=== PATIENT | female | born 1980 | race Native Hawaiian/Other Pacific Islander ===

== ENCOUNTER → 2022-01-23 08:08 | Outpatient (BNVA) | payer OTHER, SELFPAY | PROVIDERS: PCP Internal Medicine; Visit Provider Nurse Practitioner Family | DX: G43.009 Migraine without aura, not intractable, without status migrainosus (principal); M54.81 Occipital neuralgia; F07.81 Postconcussional syndrome | CPT/HCPCS: 99212 ==

== ENCOUNTER → 2022-02-17 08:02 | Outpatient (BNVA) | payer OTHER, SELFPAY | PROVIDERS: PCP Internal Medicine; Visit Provider Nurse Practitioner Family | DX: M54.81 Occipital neuralgia (principal); G43.009 Migraine without aura, not intractable, without status migrainosus; M54.2 Cervicalgia | CPT/HCPCS: 99202 ==

== ENCOUNTER → 2022-03-06 15:13 | Outpatient (BNVA) | payer OTHER, SELFPAY | PROVIDERS: PCP Internal Medicine; Visit Provider Internal Medicine | DX: M54.81 Occipital neuralgia (principal) | CPT/HCPCS: 64405; 64450; J3300 ==

== ENCOUNTER → 2022-03-20 15:02 | Outpatient (BNVA) | payer OTHER, SELFPAY | PROVIDERS: PCP Internal Medicine; Visit Provider Internal Medicine | DX: Z13.89 Encounter for screening for other disorder (principal) ==

== ENCOUNTER → 2022-04-27 09:59 | Outpatient (BNVA) | payer OTHER, SELFPAY | PROVIDERS: PCP Internal Medicine; Visit Provider Nurse Practitioner Family | DX: F07.81 Postconcussional syndrome (principal); G43.009 Migraine without aura, not intractable, without status migrainosus; M54.81 Occipital neuralgia | CPT/HCPCS: 99212 ==

== ENCOUNTER → 2022-10-24 15:29 | Outpatient (BNVA) | payer OTHER, SELFPAY | PROVIDERS: PCP Internal Medicine; Visit Provider Nurse Practitioner Family | DX: M54.2 Cervicalgia (principal) ==

== ENCOUNTER → 2023-01-17 09:56 | Outpatient (BNVA) | payer OTHER, SELFPAY | PROVIDERS: PCP Internal Medicine; Visit Provider Nurse Practitioner Family | DX: Z13.89 Encounter for screening for other disorder (principal) ==

== ENCOUNTER 2023-05-21 09:32 | Outpatient (AMB) | payer OTHER, SELFPAY ==
--- NOTE | 2023-05-21 09:34 | MHC.OFFVIS ---
Intake Vital Signs 05/21/23 09:35 Height 5 ft 10 in Weight 226 lb 8 oz BMI 32.5 BP 138/92 H Blood Pressure Location Rt brachial Position Sitting Pulse 75 Pulse Source Pulse Oximeter Pulse Oximetry (%) 98 Oxygen Delivery Method Room Air Intake Visit Reasons: 4m follow up Intake Note: Pt presents as a 4 month f/u. Pt states Nothing's really changed. went back on Aimovig in October and it took a couple month. this month was pretty good, the month before I had a migraine but it was at the end of the 4 weeks. still having crazy light sensitivity. 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 Pt reports he suffered a left pectoral muscle tear while exercising (bench pressing). He is 4-5 weeks s/p surgical repair. Has started PT. Pt reports that he is doing well on Aimovig. He is still quite photophobic- even if he uses dark mode. Watching TV, using screens can trigger a headache. He is using Tylenol and Rizatriptan prn. Using the Tizanidine 6mg as needed He continues to have bothersome diplopia- especially with reading up close. His brain MRI was stable. [facility] Medical History Cervicalgia Surgical History H/O cervical spine surgery History of lumbar surgery S/P repair of pectoralis muscle tear Family History (Updated 05/21/23 @ 09:44 by Tosha Rivera CMA) Maternal Aunt Cancer Social History (Updated 05/21/23 @ 09:45 by Tosha Rivera CMA) Household Members: Spouse Housing: House Alcohol intake: current Alcohol intake frequency: does not drink Patient Tobacco Use Status: Never used Tobacco Review of Systems Const All systems reviewed & are unremarkable except as noted in HPI and below Physical Exam Vital Signs: Last Vital Signs Pulse 75 05/21/23 09:35 BP 138/92 H 05/21/23 09:35 Pulse Ox 98 05/21/23 09:35 Oxygen Delivery Method Room Air 05/21/23 09:35 BMI result Body Mass Index 32.5 Const General: cooperative and no acute distress Orientation/consciousness: patient oriented x3 HEENT Head: Yes normocephalic Resp Effort & Inspection: normal respiratory effort and able to speak in complete sentences Neuro General: patient oriented x3, gait normal and CN's II-XI intact bilaterally Cognition (Neuro): normal cognition Motor exam (neuro): 5/5 motor strength present throughout Psych Appearance: grossly normal Mental Status: mental status grossly normal Speech and movement: Normal speech and movement present Affect: normal affect Attitude: cooperative Thought process: Normal thought process present Thought content: Normal thought content present Insight: Good insight present (Psych) Judgement: Good judgement present (Psych) Assessment & Plan Assessment & Plan (1) Diplopia: Code(s): H53.2 - Diplopia (2) Migraine without aura: Code(s): G43.009 - Migraine without aura, not intractable, without status migrainosus (3) Postconcussional syndrome: Code(s): F07.81 - Postconcussional syndrome Plan For recent onset diplopia- Will request ophthalmology consult. Reviewed brain MRI w/wo- no interval changes in non-specific white matter lesion burden. Follow-up on previous order to check labs for common etiologies For migraine: Pt may benefit from trying migarine specific blue-light filtering tanya-tinted glasses and/or trying green light/green glasses tx. Continue Aimovig 140mg sc q month. Continue Tizanidine 6mg qhs prn- for muscle spasm, tremor as well. Previous migraine prophylaxis failures- Amitriptyline- not tolerated. Propranolol- not effective after 8 weeks. Gabapentin- ineffective for migraine after > 8 weeks. Emgality- did not tolerate- worsening headache. Contraindication: Topiramate d/t risk for cognitive side effects.. Continue rizatripatn 10mg prn. Previous acute migraine tx's: Sumatriptan- lost efficacy Future considerations: Nurtec ODT prn. f/u in 3-4 months or sooner prn new/worsening s/s. Orders: Referrals Ophthalmology Referral F07.81 - Postconcussional syndrome, G43.009 - Migraine without aura, not intractable, without status migrainosus, H53.2 - Diplopia Coding Level of Care Code Est Pt Level 4 (71207) Diagnoses Diplopia H53.2 Migraine without aura G43.009 Postconcussional syndrome F07.81
[2023-05-21 09:35] VITALS: BP 138/92; PULSE 75; O2SAT 98; BMI 32.5
== END 2023-05-21 10:25 | disposition home or self-care (01) ==
PROVIDERS: Visit Provider Nurse Practitioner Family
DX: H53.2 Diplopia (principal); G43.009 Migraine without aura, not intractable, without status migrainosus; F07.81 Postconcussional syndrome
CPT/HCPCS: 99214

== ENCOUNTER → 2023-05-21 09:32 | Outpatient (BNVA) | payer OTHER, SELFPAY | PROVIDERS: Visit Provider Nurse Practitioner Family | DX: R51.9 Headache, unspecified (principal); R20.2 Paresthesia of skin; R25.3 Fasciculation; R25.1 Tremor, unspecified; H53.2 Diplopia ==

== ENCOUNTER 2023-11-14 10:57 | Outpatient (AMB) | payer OTHER, SELFPAY ==
[2023-11-14 11:29] VITALS: BP 164/112; BMI 32.6
--- NOTE | 2023-11-14 11:29 | MHC.OFFVIS ---
Intake Vital Signs 11/14/23 11:29 Height 5 ft 10 in Weight 227 lb BMI 32.6 BP 164/112 H Blood Pressure Location Rt brachial Position Sitting Intake Visit Reasons: 4m follow up-LVM Intake Note: Patient presents for 4 month follow up. im still getting them, I have one right now Allergies No Known Allergies Allergy (Verified 11/14/23 11:32) HPI HPI Comments History of Present Illness Details 43-yr-old male presents for f/u visit. Pt denies any significant interval medical changes. Pt has recovered after the recent left pectoral tear. He has been exercising. He is scheduled for BUE EMG/NCS d/t BUE tingling. He has been taking an salted electrolyte supplement qam- feels that this is helping to reduce migraine frequency/severity. He notes that when he fasts, for confucianism reasons- he is more irritable. He can notice more migraine headaches prior to the next dose of Aimovig. He still finds that exercising can alleviate the headache while exercising. Being outside does help. He is still photophobic, more so with anterior lights rather than sunlight. He did try green light therapy and green glasses, however was not very helpful. Current number of typical migraine days per month: 2 Average painfulness of these migraines: mod-severe Current number of non-migraine headache days per month: 5 Average painfulness of these headaches: mild-mod Current number of days of acute medication use per month: 1-2 x's per week [facility] Medical History Cervicalgia Surgical History S/P repair of pectoralis muscle tear H/O cervical spine surgery History of lumbar surgery Family History Maternal Aunt Cancer Social History Household Members: Spouse Housing: House Alcohol intake: current Alcohol intake frequency: does not drink Patient Tobacco Use Status: Never used Tobacco Physical Exam Vital Signs: Last Vital Signs BP 164/112 H 11/14/23 11:29 BMI result Body Mass Index 32.6 Const General: cooperative and no acute distress Orientation/consciousness: patient oriented x3 Resp Effort & Inspection: normal respiratory effort and able to speak in complete sentences Neuro General: patient oriented x3 Cranial nerves: Yes CN's II-XII intact bilaterally Cognition (Neuro): normal cognition Psych Appearance: grossly normal Mental Status: mental status grossly normal Speech and movement: Normal speech and movement present Affect: normal affect Attitude: cooperative Assessment & Plan Assessment & Plan (1) Postconcussional syndrome: Code(s): F07.81 - Postconcussional syndrome (2) Migraine without aura: Code(s): G43.009 - Migraine without aura, not intractable, without status migrainosus (3) Cervicalgia: Code(s): M54.2 - Cervicalgia Plan For migraine: Continue Aimovig 140mg sc q month. Continue Tizanidine 6mg qhs prn- for muscle spasm, tremor as well. Previous migraine prophylaxis failures- Amitriptyline- not tolerated. Propranolol- not effective after 8 weeks. Gabapentin- ineffective for migraine after > 8 weeks. Emgality- did not tolerate- worsening headache. Contraindication: Topiramate d/t risk for cognitive side effects.. ? Continue rizatripatn 10mg prn. Previous acute migraine tx's: Sumatriptan- lost efficacy Future considerations: Nurtec ODT prn. ? ? f/u in 6 months or sooner prn new/worsening s/s. Coding Level of Care Code Est Pt Level 4 (41448) Diagnoses Postconcussional syndrome F07.81 Migraine without aura G43.009 Cervicalgia M54.2
== END 2023-11-14 12:23 | disposition home or self-care (01) ==
PROVIDERS: PCP Internal Medicine; Visit Provider Nurse Practitioner Family
DX: G44.309 Post-traumatic headache, unspecified, not intractable (principal); F07.81 Postconcussional syndrome; M54.2 Cervicalgia
CPT/HCPCS: 99214

== ENCOUNTER → 2023-11-14 10:57 | Outpatient (BNVA) | payer OTHER, SELFPAY | PROVIDERS: PCP Internal Medicine; Visit Provider Nurse Practitioner Family | DX: R51.9 Headache, unspecified (principal); R20.2 Paresthesia of skin; R25.3 Fasciculation; R25.1 Tremor, unspecified; H53.2 Diplopia ==

== ENCOUNTER 2024-12-02 14:24 | Outpatient (REF) | payer OTHER, SELFPAY ==
--- OUTSIDE RECORDS SUMMARY | 2024-12-02 15:32 | XMS_ITS | Clinical Summary ---
Author Organization [facility] Address [address] [place] [address] Care Team Providers Care Lathing Supervisor Name Role Phone Mendoza Olvera MD Primary Care Provider [phone] Allergies No known active allergies Medications Medication [...] this topic Medical Devices Implanted Type Area Carton Lettering Machine Operator Device Identifier Shelf Expiration Date Model / Serial / Lot Surgiflo Hemostatic Matrix [facility] 2991-687657 - [id number] Implanted:Qty : 1 on 08/25/2021 by Joseph Sorensen MD at [place] [facility] Hemostatic Agent Anterior/ Posterior: Spine Lumbar [facility] [employer] INC 12/26/2022 2991 / / [id number] Surgiflo Hemostatic Matrix [facility] 2991-049065 - [id number] Implanted:Qty : 1 on 07/12/2022 by Joseph Sorensen MD at [facility] Hemostatic Agent Anterior: Spine Cervical JNJ ETHICON INC 08/28/2023 2991 / / [id number] Bone Graft Spine Infuse Sm Medt-Sofa [id number] - [id number] Implanted:Qty : 1 on 08/25/2021 by Joseph Sorensen MD at [facility] Anterior: Spine Lumbar MEDTRONIC SOFAMOR DANEK 05/28/2023 [id number] / / [id number] Implanted:Qty : 1 on 08/25/2021 by Joseph Sorensen MD at [facility] [facility] Anterior: Spine Lumbar MARGARITA SPINE 0L15 / / Screw Self-Starting 5.5x25mm Stry-K2m 7116-27333t-0 50672 - [id number] Implanted:Qty : 2 on 08/25/2021 by Joseph Sorensen MD at [place] [facility] Anterior: Spine Lumbar MARGARITA SPINE 5D / / Screw Lumb Ant S T 5.5x30mm Stry-K2m 7157-18600-16 2604 - [id number] Implanted:Qty : 1 on 08/25/2021 by Joseph Sorensen MD at [place] [facility] Anterior: Spine Lumbar MARGARITA SPINE 0 / / Vikos Cervical 14x14.5x7mm 7d Stry-Spin [id number] -604759 - [id number] Implanted:Qty : 1 on 07/12/2022 by Joseph Sorensen MD at [place] [facility] Anterior: Spine Cervical MARGARITA SPINE 02/02/2026 5586-0748 07L7 / [id number] / Anterior Cervical Plate Constr 1 Level 22mm Stry-K2m Ub68-46y12g-6 18269 - [id number] Implanted:Qty : 1 on 07/12/2022 by Joseph Sorensen MD at [facility] Anterior: Spine Cervical MARGARITA SPINE [id number] 2V / / Screw Va Self-Start 4x14mm Stry-K2m 8801-61524id- 143210 - [id number] Implanted:Qty : 4 on 07/12/2022 by Joseph Sorensen MD at [facility] Anterior: Spine Cervical MARGARITA SPINE [id number] 4DA / / Explanted Type Area Carton Lettering Machine Operator Device Identifier Shelf Expiration Date Model / Serial / Lot Gavino Explanted:Qty: 2 on 08/25/2021 by Joseph Sorensen MD at [facility] [facility] Posterior: Spine Lumbar Screw Explanted:Qty: 4 on 08/25/2021 by Joseph Sorensen MD at [place] [facility] Posterior: Spine Lumbar Tlif Explanted:Qty: 1 on 08/25/2021 by Joseph Sorensen MD at [facility] [facility] Posterior: Spine Lumbar Set Screw Explanted:Qty: 4 on 08/25/2021 by Joseph Sorensen MD at [facility] Posterior: Spine Lumbar Advance Directives For more information, please contact: [phone] Documents on File Type Date Recorded Patient Drill Press Hand Expl anation Advance Directive and Living Will [...] way: discussion with patient . Care Teams Lathing Supervisor Relationship Specialty Start Date End Date Mendoza Olvera MD [address] [place] [id number] PCP - General Internal Medicine 04/16/18
--- OUTSIDE RECORDS SUMMARY | 2024-12-02 15:32 | XMS_ITS | Clinical Summary ---
Author Organization [facility] Address [address] [place] [address] Care Team Providers Care Vp Genetic Name Role Phone Unavailable Primary Care Provider [...] patient's age to complete this topic Insurance [employer] * Guarantor: FARHANA CASAS Account Type Relation to Patient Date of Phone Billing Address Personal/Family [address] [place] [address] * Guarantor: SHAQ Vittana YESSI BOSWELL [facility] Account Type Relation to Patient Date of Phone Billing Address [facility]ational [facility] ATTN: A/P [address] [place] [address]
--- OUTSIDE RECORDS SUMMARY | 2024-12-02 15:32 | XMS_ITS | Clinical Summary ---
Author Organization [facility] [place] [facility] Address [address] [place] [address] Care Team Providers Care Canvas Goods Supervisor Name Role Phone Mendoza Olvera MD Primary Care Provider [phone] Surgical History Surgery Date Site/Laterality Comments OTHER SURGICAL HISTORY 04/2020 PROCEDURE: [place] ARTHRODESIS POSTERIOR INTERBODY 1 NTRSPC LUMBAR; COMMENT: Dr. Barker L5-S1 posterior fusion OTHER SURGICAL HISTORY 08/25/2021 PROCEDURE: [place] OSTEOTOMY SPINE W/DSC ANT APPR 1 VRT SGM LUMBAR; COMMENT: L5-S1 revision surgery with ALIF, anterior plate, and removal of posterior screws/rods, done in CT SHOULDER ARTHROSCOPY 2009 Right PROCEDURE: [place] SURGICAL ARTHROSCOPY SHOULDER W/LSS&RESCJ ADS; COMMENT: slap [...] this topic Medical Devices Implanted Type Area Repatcher Device Identifier Shelf Expiration Date Model / Serial / Lot Surgiflo Hemostatic Matrix [employer]Kraft[employer]ie [id number] Implanted:Qty: 1 on 08/25/2021 by Joseph Sorensen MD Implants N/A: Spine Lumbar [employer] 12/26/2022 2991 / / [id number] Surgiflo Hemostatic Matrix DataKraftAvvoEthi [id number] Implanted:Qty: 1 on 07/12/2022 by Joseph Sorensen MD Implants N/A: Spine Cervical BellhopsJ ETHICON INC 08/28/2023 2991 / / [id number] Bone Graft Spine Infuse Sm Medt-Sofa [id number] Implanted:Qty: 1 on 08/25/2021 by Joseph Sorensen MD N/A: Spine Lumbar MEDTRONIC SOFAMOR DANEK 05/28/2023 [id number] / / [id number] [id number] Implanted:Qty: 1 on 08/25/2021 by Joseph Sorensen MD N/A: Spine Lumbar MARGARITA SPINE L15 / / Screw Self-Starting 5.5x25mm Stry-K2m [id number] 3211 Implanted:Qty: 2 on 08/25/2021 by Joseph Sorensen MD N/A: Spine Lumbar MARGARITA SPINE D / / Screw Lumb Ant S T 5.5x30mm Stry-K2m 8444-96525-457 604 Implanted:Qty: 1 on 08/25/2021 by Joseph oSrensen MD N/A: Spine Lumbar MARGARITA SPINE / / Vikos Cervical 14x14.5x7mm 7d Stry-Spin [id number]- 061276 - [id number] Implanted:Qty: 1 on 07/12/2022 by Joseph Sorensen MD N/A: Spine Cervical MARGARITA SPINE 02/02/2026 2504-77366 7L7 / [id number] / Anterior Cervical Plate Constr 1 Level 22mm Stry-K2m [id number] 1249 Implanted:Qty: 1 on 07/12/2022 by Joseph Sorensen MD N/A: Spine Cervical MARGARITA SPINE [id number] V / / Screw Va Self-Start 4x14mm Stry-K2m 7693-61233mq-2 53423 Implanted:Qty: 4 on 07/12/2022 by Joseph Sorensen MD N/A: Spine Cervical MARGARITA SPINE 8801-69902 DA / / Advance Directives Documents on File Type Date Recorded Patient Transportation Design Engineer Expl anation Health Care Decision (hx) 08/26/2021 [...] (hx) 05/10/2018 AD TREJO DIRECTIVE Care Teams Canvas Goods Supervisor Relationship Specialty Start Date End Date Mendoza Olvera MD [address] [place] [phone] PCP - General Internal Medicine 01/02/22
[2024-12-02 17:56] LABS: MANUAL DIFF FLAG NO
[2024-12-02 18:07] LABS: Basophils Absolute Auto 0.1 X10*3/uL (0.0-0.2); Basophils Percent Auto 0.5 % (0-2); Eosinophils Absolute Auto 0.1 X10*3/uL (0.0-0.4); Eosinophils Percent Auto 0.8 % (0-4); Hematocrit 50.4 % (42.0-52.0); Hemoglobin 17.4 g/dl (14.0-18.0); Imm Gran Abs Auto 0.14 X10*3/uL (0.00-0.03); Imm Gran Pct Auto 1.1 % (0.0-0.4); Lymphocytes Absolute Auto 1.5 X10*3/uL (1.2-4.9); Lymphocytes Percent Auto 12.2 % (20-40); Mean Corpuscular HGB Conc 34.5 g/dl (31.0-36.0); Mean Corpuscular Hemoglobin 30.6 pg (27.0-33.0); Mean Corpuscular Volume 88.7 fL (80.0-98.0); Mean Platelet Volume 10.6 fL (9.4-12.4); Monocytes Absolute Auto 0.9 X10*3/uL (0.1-1.2); Monocytes Percent Auto 7.4 % (2-11); Neutrophils Absolute Auto 9.7 x10*3/uL (2.0-8.3); Platelet Count 363 X10*3/uL (160-400); Red Blood Count 5.68 X10*6/uL (4.60-5.80); Red Cell Distribution Width 13.1 % (11.0-16.0); White Blood Count 12.4 X10*3/uL (4.8-10.8)
[2024-12-02 18:20] LABS: Estimated Average Glucose 103 mg/dL; Hemoglobin A1C 152.5361 umol/L; Hemoglobin A1c % 5.2 % (<6.0); Total Hemoglobin (HGBA1C) 4534.5874 umol/L
[2024-12-02 18:27] LABS: Alanine Aminotransferase 46 U/L (0-40); Albumin Level 4.8 g/dL (3.5-5.0); Alkaline Phosphatase 43 U/L (39-117); Anion Gap 18 (12-20); Aspartate Amino Transferase 25 U/L (5-37); Bilirubin Total 0.7 mg/dL (0.0-1.0); Blood Urea Nitrogen 17 mg/dL (9-16); Calcium 9.4 mg/dL (8.4-10.2); Carbon Dioxide 26 mmol/L (22-29); Chloride 103 mmol/L (96-108); Estimated Glomerular Filt Rate 49; Glucose Random 123 mg/dL (60-115); Magnesium 2.3 mg/dL (1.6-2.6); Sodium 143 mmol/L (135-145); Total Protein 8.2 g/dL (6.5-8.0)
[2024-12-02 18:37] LABS: TSH reflex Free T4 0.78 uIU/mL (0.32-4.0)
[2024-12-02 18:57] LABS: Folate 7.9 ng/mL (> or = 4.0); Vitamin B12 792 pg/mL (200-900)
== END 2024-12-02 14:25 | disposition home or self-care (01) ==
LOC: HO.HKASLDS 14:24
PROVIDERS: PCP Internal Medicine; Visit Provider Nurse Practitioner Family
DX: R20.2 Paresthesia of skin (principal); R25.1 Tremor, unspecified; R25.3 Fasciculation; Z13.1 Encounter for screening for diabetes mellitus
CPT/HCPCS: 36415; 80053; 82607; 82746; 83036; 83735; 84443; 85025

== ENCOUNTER 2024-12-02 14:24 | Outpatient (AMB) | payer OTHER, SELFPAY ==
--- NOTE | 2024-12-02 14:27 | MHC.OFFVIS ---
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 Pt reports he had returned to work, however he sustained another back injury, and has since been out of work. Pt reports he has been having facial tingling burning, last week in the right lower jaw, but then can be in left upper jaw /eye, but today in the right upper jaw, kristi-orbital, temporal. The pain is triggered by touch or cold win. Once triggered, the pain will last for hours, but touch will cause intense pain x's a minute or two and then subsides. Can feel dizzy, like he would lose his peripheral vision, and could not speak or take a step. He has had these episodes before. He feels like something is in the corner of his right eye- like a web or something but nothing is there. Last eye exam was yrs ago. He has been noticing increased migraine headache in the last 2 weeks of his Aimovig cycle. He is still generally photophobic. He has been taking a salted electrolyte supplement qam He has had increased tiredness, needing to take more naps, snoring. He is hesitant to have a sleep study- as he cannot sleep with things touching him. His blood pressure is elevated today, he feels this is due to pain. States his , who is a nurse, checks his blood pressure at home and usually his SBP is about 120. He has right > left fingertip pins and needles- during the day and night. He can have RUE pain He has been having RUE bicep/shoulder region (rarely left shoulder) muscle spams/jumping. He has had Right bicep tear x's 2, and left pec tear x's 1. He is not exercising at this time. He is involved in caring for his dog. Denies interval dental work/pain/infections, sinus/URI s/s. [facility] Medical History Cervicalgia Surgical History S/P repair of pectoralis muscle tear H/O cervical spine surgery History of lumbar surgery Family History Maternal Aunt Cancer Social History Household Members: Spouse Housing: House Alcohol intake: current Alcohol intake frequency: does not drink Patient Tobacco Use Status: Never used Tobacco Physical Exam Vital Signs: BMI result Body Mass Index 32.1 Const General: cooperative and no acute distress Orientation/consciousness: patient oriented x3 Resp Effort & Inspection: normal respiratory effort and able to speak in complete sentences Neuro Other: Photophobia Limited cervical range of motion in extension with negative bilateral Spurling. Palpable tenderness along right zygomatic bone. Bilateral TMJ tightness, crepitus Palpation of bilateral temporal tendon insertion point- does not elicit increased tenderness. RUE- positive medial compression test. DTRs 2+ throughout. 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 - Disorder of trigeminal nerve, unspecified Category: Medical (2) Facial paresthesia: Code(s): R20.2 - Paresthesia of skin Category: Medical (3) Postconcussional syndrome: Code(s): F07.81 - Postconcussional syndrome Category: Medical (4) Migraine without aura: Code(s): G43.009 - Migraine without aura, not intractable, without status migrainosus Category: Medical (5) Cervicalgia: Code(s): M54.2 - Cervicalgia Category: Medical (6) White matter abnormality on MRI of brain: Code(s): R90.82 - White matter disease, unspecified Category: Medical Plan For facial paresthesias suggestive of trigeminal neuralgia/neuropathy: Check labs for common etiologies Follow-up brain MRI with and without contrast- also to assess status of known intracerebral white matter lesions. Start carbamazepine ER 100 mg b.i.d. x's 1-2 weeks, then increase to 2 caps p.o. b.i.d.- may help migraine as well. Advised pt will need routine labs once he has reached therapeutic dose. For BUE R > paresthesias: Pt advised to undergo EMG/NCS For daytime sleepiness: Discussed having patient undergo HST versus In-lab PSG, however patient does not believe he would tolerate the study, as he can not tolerate wearing things in his sleep. Advise patient, that if he were to agree to have a sleep study, and if the sleep study showed sleep apnea, there are alternate treatments other than CPAP Tx. Patient will consider. For migraine: Continue Aimovig 140mg sc q month. Continue Tizanidine 6mg qhs prn- for muscle spasm, tremor as well. Previous migraine prophylaxis failures- Amitriptyline- not tolerated. Propranolol- not effective after 8 weeks. Gabapentin- ineffective for migraine after > 8 weeks. Emgality- did not tolerate- worsening headache. Contraindication: Topiramate d/t risk for cognitive side effects. Future considerations: Adding anti-HTN agent to optimize both BP and migraine control. ? Continue rizatripatn 10mg prn. Previous acute migraine tx's: Sumatriptan- lost efficacy Future considerations: Nurtec ODT prn. ? ? Will follow-up upon review of above and patient to follow-up in clinic in 6 months or sooner prn. Orders: Orders Vitamin B12 and Folate Today R20.2 - Paresthesia of skin, R25.1 - Tremor, unspecified, R25.3 - Fasciculation TSH reflex Free T4 Today R20.2 - Paresthesia of skin, R25.1 - Tremor, unspecified, R25.3 - Fasciculation Vitamin B6 Today R20.2 - Paresthesia of skin, R25.1 - Tremor, unspecified, R25.3 - Fasciculation NE electromyogram (EMG) Today M54.2 - Cervicalgia, R20.2 - Paresthesia of skin, R25.1 - Tremor, unspecified, R25.3 - Fasciculation NE nerve conduction velocity Today M54.2 - Cervicalgia, R20.2 - Paresthesia of skin, R25.1 - Tremor, unspecified, R25.3 - Fasciculation Complete Blood Count Auto Diff Today R20.2 - Paresthesia of skin, R25.1 - Tremor, unspecified, R25.3 - Fasciculation Comprehensive Met. Panel Today R20.2 - Paresthesia of skin, R25.1 - Tremor, unspecified, R25.3 - Fasciculation Magnesium Today R20.2 - Paresthesia of skin, R25.1 - Tremor, unspecified, R25.3 - Fasciculation Hemoglobin A1c Today R20.2 - Paresthesia of skin, R25.1 - Tremor, unspecified, R25.3 - Fasciculation MR head/brain wo/w con Today G50.9 - Disorder of trigeminal nerve, unspecified, R20.2 - Paresthesia of skin, R25.1 - Tremor, unspecified, R25.3 - Fasciculation, R90.82 - White matter disease, unspecified Medications: New carbamazepine ER 1 cap x's 2 weeks then 2 caps orally every 12 hours; 30 days 120 caps 3RF carbamazepine ER 1 cap x's 2 weeks then 2 caps orally every 12 hours; 30 days 120 caps 3RF Coding Level of Care Code Est Pt Level 4 (31529) Diagnoses Trigeminal nerve disorder G50.9 Facial paresthesia R20.2 Postconcussional syndrome F07.81 Migraine without aura G43.009 Cervicalgia M54.2 White matter abnormality on MRI of brain R90.82
--- OUTSIDE RECORDS SUMMARY | 2024-12-02 14:28 | XMS_ITS | Clinical Summary ---
Author Organization [facility] Address [address] [place] [address] Care Team Providers Care Collection Card Clerk Name Role Phone Unavailable Primary Care Provider Unavailabl e Allergies No known active allergies Medications Magnesium Oxide 400 (241.3 Mg) MG Tab TAKE 1 TABLET BY MOUTH AT BEDTIME 6 02/17/2019 Active Erenumab-aooe (AIMOVIG 140 DOSE) 70 MG/ML Solution Auto-injector 70 MG EVERY MONTH Active Cephalexin 500 MG CapIndications: Laceration of right hand without foreign body, initial encounter 1 CAPSULE by mouth four times per day x 7 days 28 Cap 04/18/2019 Active Active Problems No known active problems Social History Tobacco Use Types Packs/Day Years Used Date Smoking Tobacco: Never Assessed Sex and Gender Information Value Date Recorded Sex Assigned at Not on file Legal Sex Male 10:06 AM EDT Gender Identity Not on file Sexual Orientation Not on file Last Filed Vital Signs Vital Sign Reading Time Taken Comments Blood Pressure 135/86 04/18/2019 10:03 AM EDT Pulse 74 04/18/2019 10:03 AM EDT Temperature 36.9 ??C (98.4 ??F) 04/18/2019 10:03 AM E DT Respiratory Rate 16 04/18/2019 10:03 AM EDT Oxygen Saturation 98% 04/18/2019 10:03 AM EDT Inhaled Oxygen Concentration - - Weight 98.9 kg (218 lb) 03/27/2019 9:28 AM EDT Height 176.5 cm (5' 9.5 ) 03/27/2019 9:28 AM EDT Body Mass Index 31.73 03/27/2019 9:28 AM EDT Plan of Treatment Health Maintenance Due Date Last Done Comments Hepatitis C Screening 1981 DTaP/Tdap/Td (1 - Tdap) 1999 Hep B (1 of 3 - 19+ 3-dose series) 02/23/2000 COVID-19 Vaccine (2023-2 5 season) 2024 Influenza (#1) 2024 Zoster (Shingrix) (1 of 2) 2031 HPV Vaccine Aged Out No longer eligi ble based on patient's age to complete this topic Hep A Aged Out No longer eligi ble based on patient's age to complete this topic Hib Aged Out No longer eligi ble based on patient's age to complete this topic Meningococcal ACWY Aged Out No longer eligible based on patient's age to complete this topic Pneumococcal Aged Out No longer eligi ble based on patient's age to complete this [place] [address] * Guarantor: FARHANA CASAS Account Type Relation to Patient Date of Phone Billing Address Personal/Family [address] [place] [address] * Guarantor: [employer] YESSI [facility] Account Type Relation to Patient Date of Phone Billing Address 

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
[2024-12-02 14:30] VITALS: BP 142/90; PULSE 121; O2SAT 94; BMI 32.1
== END 2024-12-02 15:26 | disposition home or self-care (01) ==
PROVIDERS: PCP Internal Medicine; Visit Provider Nurse Practitioner Family
DX: G50.9 Disorder of trigeminal nerve, unspecified (principal); R20.2 Paresthesia of skin; F07.81 Postconcussional syndrome; G43.009 Migraine without aura, not intractable, without status migrainosus; M54.2 Cervicalgia; R90.82 White matter disease, unspecified
CPT/HCPCS: 99214

== ENCOUNTER 2024-12-09 10:16 | Outpatient (REF) | payer OTHER, SELFPAY ==
--- NOTE | 2024-12-09 10:17 | EMG_ITS ---
FINDINGS: Bilateral median and ulnar motor and sensory studies were performed. Bilateral radial sensory studies were performed and bilateral median and lateral antecubital brachial sensory studies were performed and paraspinal muscles were tested with a needle. IMPRESSION: 1. Aevr-od-rendbxgz left and mild right median neuropathy across carpal tunnel. 2. Mild bilateral ulnar neuropathy across cubital tunnel. MD MAXWELL Perales/FER / [phone]
--- OUTSIDE RECORDS SUMMARY | 2024-12-09 11:27 | XMS_ITS | Clinical Summary ---
Author Organization [facility] Address [address] [place] [address] Care Team Providers Care Railroad Shop Inspector Name Role Phone Unavailable Primary Care Provider [...] patient's age to complete this topic Insurance [employer] * Guarantor: FARHANA CASAS Account Type Relation to Patient Date of Phone Billing Address Personal/Family [address] [place] [address] * Guarantor: SHAQ LRN YESSI BOSWELL [employer] Account Type Relation to Patient Date of Phone Billing Address Occupational [facility] ATTN: A/P [address] [place] [address]
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
--- OUTSIDE RECORDS SUMMARY | 2024-12-09 11:27 | XMS_ITS | Clinical Summary ---
Author Organization [facility] Address [address] [place] [address] Care Team Providers Care Business Technology Teacher Name Role Phone Mendoza Olvera MD Primary Care Provider [phone] Allergies No known active allergies Medications Medication [...] this topic Medical Devices Implanted Type Area Laundry Supervisor Device Identifier Shelf Expiration Date Model / Serial / Lot Surgiflo Hemostatic Matrix [facility] 2991-185980 - [id number] Implanted:Qty : 1 on 08/25/2021 by [place] [facility] [place] Hemostatic Agent Anterior/ Posterior: Spine Lumbar [facility] [employer] INC 12/26/2022 2991 / / [id number] Surgiflo Hemostatic Matrix [facility] 2991-482458 - [id number] Implanted:Qty : 1 on 07/12/2022 by Joseph Sorensen [place] [facility] [place] [facility] Hemostatic Agent Anterior: Spine Cervical JNJ ETHICON INC 08/28/2023 2991 / / [id number] Bone Graft Spine Infuse Sm Medt-Sofa 0255649-92185 6 - [id number] Implanted:Qty : 1 on 08/25/2021 by Joseph Sorensen [place] [facility] [place] [facility] Anterior: Spine Lumbar MEDTRONIC SOFAMOR DANEK 05/28/2023 [id number] / / [id number] Verdon Implanted:Qty : 1 on 08/25/2021 by Joseph Sorensen [place] [facility] [place] [facility] Anterior: Spine Lumbar MARGARITA SPINE 0L15 / / Screw Self-Starting 5.5x25mm Stry-K2m 1986-08138q-4 66063 - [id number] Implanted:Qty : 2 on 08/25/2021 by Joseph Sorensen [place] [facility] [place] Anterior: Spine Lumbar MARGARITA SPINE 5D / / Screw Lumb Ant S T 5.5x30mm Stry-K2m 2526-20563-39 2604 - [id number] Implanted:Qty : 1 on 08/25/2021 by Joseph S[place]ns[place] [facility] [place] Anterior: Spine Lumbar MARGARITA SPINE 0 / / Vikos Cervical 14x14.5x7mm 7d Stry-Spin 2504-838562p9 -464631 - [id number] Implanted:Qty : 1 on 07/12/2022 by Joseph Sorensen [place] [facility] [place] Anterior: Spine Cervical MARGARITA SPINE 02/02/2026 0122-8835 07L7 / [id number] / Anterior Cervical Plate Constr 1 Level 22mm Stry-K2m Zu36-77w59b-7 94425 - [id number] Implanted:Qty : 1 on 07/12/2022 by Joseph Sorensen [place] [facility] [place] [facility] Anterior: Spine Cervical MARGARITA SPINE [id number] 2V / / Screw Va Self-Start 4x14mm Stry-K2m 8801-06317wx- 981709 - [id number] Implanted:Qty : 4 on 07/12/2022 by Joseph Sorensen [place] [facility] [place] [facility] Anterior: Spine Cervical MARGARITA SPINE 9299-0023 4DA / / Explanted Type Area Laundry Supervisor Device Identifier Shelf Expiration Date Model / Serial / Lot Gavino Explanted:Qty: 2 on 08/25/2021 by Joseph Sorensen [place] [facility] [place] [facility] Posterior: Spine Lumbar Screw Explanted:Qty: 4 on 08/25/2021 by Joseph Sorensen [place] [facility] [place] [facility] Posterior: Spine Lumbar Tlif Explanted:Qty: 1 on 08/25/2021 by Joseph Sorensen [place] [facility] [place] [facility] Posterior: Spine Lumbar Set Screw Explanted:Qty: 4 on 08/25/2021 by Joseph S[place]nsen [place] [facility] [place] [facility] Posterior: Spine Lumbar Advance Directives For more information, please contact: [phone] Documents on File Type Date Recorded Patient Customer Equipment Engineer Expl anation Advance Directive and Living Will [...] way: discussion with patient . Care Teams Business Technology Teacher Relationship Specialty Start Date End Date Mendoza Olvera MD [address] [place] [address] PCP - General Internal Medicine 04/16/18
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
== END 2024-12-09 10:17 | disposition home or self-care (01) ==
LOC: HO.NEURO 10:16
PROVIDERS: PCP Internal Medicine; Visit Provider Nurse Practitioner Family
DX: R20.2 Paresthesia of skin (principal); R25.3 Fasciculation; R25.1 Tremor, unspecified; M54.2 Cervicalgia
CPT/HCPCS: 95886; 95913

== ENCOUNTER → 2025-02-11 09:33 | Outpatient (REF) | payer OTHER, SELFPAY ==
--- OUTSIDE RECORDS SUMMARY | 2025-02-11 10:39 | XMS_ITS | Clinical Summary ---
Author Organization [facility] Address [address] [place] [address] Care Team Providers Care Director Regulatory Agency Name Role Phone Mendoza Olvera MD Primary Care Provider [phone] Allergies No known active allergies Medications Medication [...] this topic Medical Devices Implanted Type Area Stewardess Supervisor Device Identifier Shelf Expiration Date Model / Serial / Lot Surgiflo Hemostatic Matrix [facility] 2991-632201 - [id number] Implanted:Qty : 1 on 08/25/2021 by Joseph Sorensen MD at [facility] [place] Hemostatic Agent Anterior/ Posterior: Spine Lumbar [facility] [employer] INC 12/26/2022 2991 / / [id number] Surgiflo Hemostatic Matrix [facility] 2991-054027 - [id number] Implanted:Qty : 1 on 07/12/2022 by Joseph Sorensen MD at [facility] [place] Hemostatic Agent Anterior: Spine Cervical JNJ ETHICON INC 08/28/2023 2991 / / [id number] Bone Graft Spine Infuse Sm Medt-Sofa 2345165-49281 6 - [id number] Implanted:Qty : 1 on 08/25/2021 by Joseph Sorensen MD at [facility] [place] Anterior: Spine Lumbar MEDTRONIC SOFAMOR DANEK 05/28/2023 [id number] / / [id number] [place] Implanted:Qty : 1 on 08/25/2021 by Joseph Sorensen MD at [facility] Anterior: Spine Lumbar MARGARITA SPINE 0L15 / / Screw Self-Starting 5.5x25mm Stry-K2m 6922-17471t-5 50138 - [id number] Implanted:Qty : 2 on 08/25/2021 by Joseph Sorensen MD at [facility] [place] and Med Anterior: Spine Lumbar MARGARITA SPINE 5D / / Screw Lumb Ant S T 5.5x30mm Stry-K2m 4321-27312-36 2604 - [id number] Implanted:Qty : 1 on 08/25/2021 by Joseph Sorensen MD at [facility] [place] and Med Anterior: Spine Lumbar MARGARITA SPINE 0 / / Vikos Cervical 14x14.5x7mm 7d Stry-Spin 2504-659705f1 -630622 - [id number] Implanted:Qty : 1 on 07/12/2022 by Joseph Sorensen MD at [facility] [place] and Med Anterior: Spine Cervical MARGARITA SPINE 02/02/2026 7653-7790 07L7 / [id number] / Anterior Cervical Plate Constr 1 Level 22mm Stry-K2m Up59-70v55z-9 36047 - [id number] Implanted:Qty : 1 on 07/12/2022 by Joseph Sorensen MD at [facility] Anterior: Spine Cervical MARGARITA SPINE [id number] 2V / / Screw Va Self-Start 4x14mm Stry-K2m 8801-58946os- 746183 - [id number] Implanted:Qty : 4 on 07/12/2022 by Joseph Sorensen MD at [facility] Anterior: Spine Cervical MARGARITA SPINE 1323-1121 4DA / / Explanted Type Area Stewardess Supervisor Device Identifier Shelf Expiration Date Model / Serial / Lot Gavino Explanted:Qty: 2 on 08/25/2021 by Joseph Sorensen MD at [facility] Posterior: Spine Lumbar Screw Explanted:Qty: 4 on 08/25/2021 by Joseph Sorensen MD at [facility] Posterior: Spine Lumbar Tlif Explanted:Qty: 1 on 08/25/2021 by Joseph Sorensen MD at [facility] Posterior: Spine Lumbar Set Screw Explanted:Qty: 4 on 08/25/2021 by Joseph Sorensen MD at [facility] Posterior: Spine Lumbar Advance Directives For more information, please contact: [phone] Documents on File Type Date Recorded Patient Orthopaedic General Expl anation Advance Directive and Living Will [...] way: discussion with patient . Care Teams Director Regulatory Agency Relationship Specialty Start Date End Date Mendoza Olvera MD [address] [place] [address] PCP - General Internal Medicine 04/16/18
--- OUTSIDE RECORDS SUMMARY | 2025-02-11 10:39 | XMS_ITS | Clinical Summary ---
Author Organization [facility] Address [address] [place] [address] Care Team Providers Care New Media Strategist Name Role Phone Mendoza Olvera MD Primary Care Provider [phone] Surgical History Surgery Date Site/Laterality Comments OTHER SURGICAL HISTORY 04/2020 PROCEDURE: [place] ARTHRODESIS POSTERIOR INTERBODY 1 NTRSPC LUMBAR; COMMENT: Dr. Barker L5-S1 posterior fusion OTHER SURGICAL HISTORY 08/25/2021 PROCEDURE: [place] OSTEOTOMY SPINE W/DSC ANT APPR 1 VRT SGM LUMBAR; COMMENT: L5-S1 revision surgery with ALIF, anterior plate, and removal of posterior screws/rods, done in CT SHOULDER ARTHROSCOPY 2009 Right PROCEDURE: [place] SURGICAL ARTHROSCOPY SHOULDER W/LSS&RESCJ ADS; COMMENT: slap [...] [facility] Screening 11/29/2019 Influenza Vaccine (Season Ended) 2025 09/29/20 17 HIB Vaccines Aged Out No longer eligi [...] age to complete this topic Meningococcal B Vaccine Aged Out No l onger eligible based on patient's age to complete [...] this topic Medical Devices Implanted Type Area Loss Prevention Auditor Device Identifier Shelf Expiration Date Model / Serial / Lot Surgiflo Hemostatic Matrix [employer] [id number] Implanted:Qty: 1 on 08/25/2021 by Joseph Sorensen MD Implants N/A: Spine Lumbar [employer] 12/26/2022 2991 / / [id number] Surgiflo Hemostatic Matrix [employer] [id number] Implanted:Qty: 1 on 07/12/2022 by Joseph Sorensen MD Implants N/A: Spine Cervical JNJ ETHISentis[employer] INC 08/28/2023 2991 / / [id number] Bone Graft Spine Infuse [facility] [id number] Implanted:Qty: 1 on 08/25/2021 by Joseph Sorensen MD N/A: Spine Lumbar MEDTRONIC CHRISTIANO BELCHER 05/28/2023 [id number] / / [id number] Courtney Implanted:Qty: 1 on 08/25/2021 by Joseph Sorensen MD N/A: Spine Lumbar MARGARITA SPINE L15 / / Screw Self-Starting 5.5x25mm Stry-K2m 7663-52191r-81 3211 Implanted:Qty: 2 on 08/25/2021 by Joseph Sorensen MD N/A: Spine Lumbar MARGARITA SPINE D / / Screw Lumb Ant S T 5.5x30mm Stry-K2m [id number] 604 Implanted:Qty: 1 on 08/25/2021 by Joseph Sorensen MD N/A: Spine Lumbar MARGARITA SPINE / / Vikos Cervical 14x14.5x7mm 7d Stry-Spin 2504-577231m7- 340149 - [id number] Implanted:Qty: 1 on 07/12/2022 by Joseph Sorensen MD N/A: Spine Cervical MARGARITA SPINE 02/02/2026 2504-70934 7L7 / [id number] / Anterior Cervical Plate Constr 1 Level 22mm Stry-K2m Pa97-39i34p-06 1249 Implanted:Qty: 1 on 07/12/2022 by Joseph Sorensen MD N/A: Spine Cervical MARGARITA SPINE [id number] V / / Screw Va Self-Start 4x14mm Stry-K2m 7074-77741hi-5 18599 Implanted:Qty: 4 on 07/12/2022 by Joseph Sorensen MD N/A: Spine Cervical MARGARITA SPINE 8801-64522 DA / / Advance Directives Documents on File Type Date Recorded Patient Insole Lip Turner Expl anation Health Care Decision (hx) 08/26/2021 [...] (hx) 05/10/2018 AD TREJO DIRECTIVE Care Teams New Media Strategist Relationship Specialty Start Date End Date Mendoza Olvera MD [address] [place] [phone] PCP - General Internal Medicine 01/02/22
--- OUTSIDE RECORDS SUMMARY | 2025-02-11 10:39 | XMS_ITS ---
Author Name [facility] Organization Unknown Encounters Encounter Type Encounter Reason Primary Diagnosis Location Date Ambulatory [facility] 07/27/2023 Ambulatory [facility] 07/13/2023 Ambulatory [facility] 07/13/2023 Ambulatory [facility] 07/13/2023 Ambulatory [facility] 05/26/2023 Ambulatory [facility] 04/21/2023 Ambulatory [facility] 03/17/2023
== END ==
LOC: HO.SL 09:33
PROVIDERS: PCP Internal Medicine; Visit Provider Nurse Practitioner Family
DX: Z13.89 Encounter for screening for other disorder (principal)

== ENCOUNTER 2025-06-04 09:22 | Outpatient (AMB) | payer OTHER, SELFPAY ==
--- OUTSIDE RECORDS SUMMARY | 2025-01-15 05:15 | XMS_ITS ---
Author Organization [facility] [place] Address [address] [facility] [address] [place] [address] Care Team Providers Care Supervisor Files Name Role Phone Migration, Provider Unavailable Unavailable REASON FOR VISIT Follow-up Appt Encounters Encounter Location Date Provider Diagnosis [facility], [address] [place] [address] 01/15/2025 Provider Migration Plan Of Treatment Next Appt Details Provider Name:Janell Nelson, 06/22/2025 09:00:00 AM, [address] [place] [address], [address], [place], [address], [phone] Progress Notes * FARHANA SELLERSDOB: [birth year] (45 yo M)Acc No.[id number]:01/15/2025 Progress Notes Patient: FARHANA MORRIS Provider: Fred Manzano :1980 A ge:44 Y S ex:Male Date:01/15/2025 Address:[address] [place], [place] [id number] Subjective: * Chief Complaints: * F ollow-up Appt * Ocular Surgical History: Objective: Vision Examination: * Electronic signature of Prov ider Migration on 06/04/2025 at 09:46 AM EDT Sign off status: Pending * Provider: Fred hankins Migration Date: 01/15/2025 Generated for Ritchie rinaldi/Jefferson/eTransmitting on: 0 06/04/2025 09:46 AM EDT
[2025-06-04 09:25] VITALS: BP 128/90; PULSE 89; O2SAT 98; BMI 31.5
--- NOTE | 2025-06-04 09:25 | A.OFFVIS_ITS ---
Vital Signs 06/04/25 09:25 Height 5 ft 10 in Weight 219 lb 6 oz BMI 31.5 BP 128/90 H Blood Pressure Location Rt brachial Position Sitting Pulse 89 Pulse Source Pulse Oximeter Pulse Oximetry (%) 98 Oxygen Delivery Method Room Air Intake Visit Reasons: 6 mnts f/u Intake Note: Patient presents follow up Trigeminal Nerve disorder/Migraine medication. Labs/MRI/EMG in chart. Advisory Software Engineer Required: No Accompanied by: Self / Same As Patient Allergies No Known Allergies Allergy (Verified 06/04/25 09:31) Medication List - Last Reconciled 06/04/25 by OMERO Russo acetaminophen 1,000 mg PO TID PRN anastrozole 1 mg PO 2XW celecoxib (Celebrex) 200 mg PO DAILY erenumab-aooe (Aimovig Autoinjector) 140 mg subcut monthly; 30 days rizatriptan 5 - 10 mg (0.5 - 1 x 10 mg) PO Q2H PRN 21 days testosterone cypionate mg IM tirzepatide (Mounjaro) 10 mg subcut QWEEK tizanidine 6 mg (1.5 x 4 mg) PO BEDTIME PRN 30 days Do you need a note to return to daycare/school/sports/work: No HPI Comments Details: 45-yr-old male presents for f/u visit of migraine. 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 Pt reports just occasional episodes of intermittent either right or left facial tingling burning, last week in the right lower jaw, but then can be in left upper jaw /eye, but today in the right upper jaw, kristi-orbital, temporal. Pain is triggered by touch or cold wind, and once triggered, the pain will last for hours, but touch will cause intense pain x's a minute or two and then subsides. He did not tolerate carbamazepine. Can feel off-balance and some lightheadedness- may forget to eat now that he is Mounjaro for weight loss. He did not have his Aimovig x's at least 2 months d/t insurance issues. Pt just resumed the Aimovig a few days ago, and already migraines have started subside. He is using his rizatriptan w/ good effect. He is still generally photophobic. He has been taking a salted electrolyte supplement qam He has been noticing increased shoulder discomfort- plans to f/u with ortho soon. Baseline migraie w/ aura- sees white spots, os more classic visual aura, lightheadedness, preceding the headaches. [facility] Medical History Cervicalgia Surgical History S/P repair of pectoralis muscle tear H/O cervical spine surgery History of lumbar surgery Family History Maternal Aunt Cancer Social History Household Members: Spouse Housing: House Alcohol intake: current Alcohol intake frequency: does not drink Patient Tobacco Use Status: Never used Tobacco Physical Exam Vital Signs: Last Vital Signs Pulse 89 06/04/25 09:25 BP 128/90 H 06/04/25 09:25 Pulse Ox 98 06/04/25 09:25 Oxygen Delivery Method Room Air 06/04/25 09:25 BMI result Body Mass Index 31.5 Const General: cooperative and no acute distress Orientation/consciousness: patient oriented x3 Resp Effort & Inspection: normal respiratory effort and able to speak in complete sentences Neuro Other: Photophobia General: patient oriented x3 Cranial nerves: Yes CN's II-XII intact bilaterally Cognition (Neuro): normal cognition Psych Appearance: grossly normal Mental Status: mental status grossly normal Speech and movement: Normal speech and movement present Affect: normal affect Attitude: cooperative Assessment & Plan Assessment & Plan (1) Migraine with aura: Code(s): G43.109 - Migraine with aura, not intractable, without status migrainosus Category: Medical (2) Trigeminal nerve disorder: Code(s): G50.9 - Disorder of trigeminal nerve, unspecified Category: Medical (3) Facial paresthesia: Code(s): R20.2 - Paresthesia of skin Category: Medical (4) Postconcussional syndrome: Code(s): F07.81 - Postconcussional syndrome Category: Medical (5) Migraine without aura: Code(s): G43.009 - Migraine without aura, not intractable, without status migrainosus Category: Medical Qualifiers: Status migrainosus presence: without status migrainosus Intractability: not intractable Qualified Code(s): G43.009 - Migraine without aura, not intractable, without status migrainosus (6) White matter abnormality on MRI of brain: Code(s): R90.82 - White matter disease, unspecified Category: Medical Plan For facial paresthesias suggestive of trigeminal neuralgia/neuropathy: Reviewed labs- unremarkable Brain MRI with and without contrast- findings c/w migraine vasculopathy Continue to optimize CV risk factors- pt now on anti-HTN tx and Mounjaro for wt loss Discontinue carbamazepine ER 100 mg- not tolerated. For BUE R > paresthesias: BUE EMG/NCS- 1. Dedm-sh-wrllycsc left and mild right median neuropathy across carpal tunnel. 2. Mild bilateral ulnar neuropathy across cubital tunnel. fPt was referred to ortho- f/u w/ ortho as planned For daytime sleepiness: Monitor- pt previously declined sleep study For migraine with and without visual aura: Continue Aimovig 140mg sc q month. Continue Tizanidine 6mg qhs prn- for muscle spasm, tremor as well. Previous migraine prophylaxis failures- Amitriptyline- not tolerated. Propranolol- not effective after 8 weeks. Gabapentin- ineffective for migraine after > 8 weeks. Emgality- did not tolerate- worsening headache. Carbamazepine- not tolerated. Contraindication: Topiramate d/t risk for cognitive side effects. Future considerations: Adding anti-HTN agent to optimize both BP and migraine control. ? Continue rizatripatn 10mg prn. Previous acute migraine tx's: Sumatriptan- lost efficacy Future considerations: Nurtec ODT prn. ? ? Follow-up in clinic in March 2026 (when Aimovig PA will be due again) or sooner prn. Coding Level of Care Code Est Pt Level 4 (21505) Diagnoses Migraine with aura G43.109 Trigeminal nerve disorder G50.9 Facial paresthesia R20.2 Postconcussional syndrome F07.81 Migraine without aura and without status migrainosus, not intractable G43.009 Status migrainosus presence: without status migrainosus Intractability: not intractable White matter abnormality on MRI of brain R90.82
--- OUTSIDE RECORDS SUMMARY | 2025-06-04 09:46 | XMS_ITS | Patient Health Record ---
Author Organization [facility] [address] Address [address] [place] [address] Care Team Providers Care Hose Mender Name Role Phone Primary, Pulse Primary Care Provider Avis Erazo Unavailable [phone] ROSARIO TOM Unavailable [phone] Allergies No Known Allergies Reason For Referral No Information Medications Medication SIG (Take, Route, Frequency, Duration) Notes Start Date End Date Status Aimovig 140 MG/ML Subcutaneous; Durati on: 30 Days Active Zepbound 7.5 MG/0.5ML 0.5 mL Subcutaneou s weekly; Duration: 30 days Active Rizatriptan Benzoate Active Losartan Potassium 25 MG TAKE 1 TABLET B Y MOUTH EVERY DAY Oral; Duration: 90 Days Active Accutane Active amLODIPine Benzoate Active tiZANidine HCl 6 MG 1 capsule at bedtime as needed Orally Once a day Active Anastrozole 1 MG 4mg 1x day Orally On ce a day Active Tirzepatide-Weight Management 2.5 MG/0.5ML 0.5 mL Subcutaneous Active CeleBREX 03/20/2025 Active Testosterone Cypionate 200 MG/ML 0.5 mL 2x weekly Injection 03/20/2025 A ctive Problems Problem Type SNOMED Code ICD Code Onset Dates Problem Status W/U Status Risk Notes Problem Obesity due to excess calories (234703018) Other obesity due to excess calories (E66.09) Active confirmed Problem Abnormal blood pressure (97530957) Encounter for examination of blood pressure with abnormal findings (Z01.31) Active confirmed Problem Essential hypertension (06374176) Essential hypertension (I10) Active confirmed Problem Body mass index 30.00 to 34.99 (121281239834514 ) Body mass index [BMI] 32.0-32.9, adult (Z68.32) Active confirmed Problem Body mass index 30.00 to 34.99 (634059936137861 ) BMI 31.0-31.9,adult (Z68.31) Active confirmed Vital Signs Heart Rate 100 /min 05/19/2025 Oximetry 98 % 05/19/2025 Blood pressure diastolic 84 mm Hg 05/19/2025 Height 69 in 05/19/2025 Blood pressure systolic 136 mm Hg 05/19/2025 Weight 211.7 lbs 05/19/2025 BMI 31.26 kg/m2 05/19/2025 Encounters Encounter Location Date Provider Diagnosis [facility] [address] [address] 05/19/2025 Avis Normoyle BMI 31.0-31.9,adult Z68.31 ; Obesity, class 1 E66.811 ; Essential hypertension I10 and Encounter for examination of blood pressure with abnormal findings Z01.31 [facility] [address] [address] 03/20/2025 Avis Normoyle Other obesity due to excess calories E66.09 ; Body mass index [BMI] 32.0-32.9, adult Z68.32 ; Obesity, class 1 E66.811 ; Essential hypertension I10 and Encounter for examination of blood pressure with abnormal findings Z01.31 [facility] [address] [address] 04/20/2025 ROSARIO GUNTERYehuda Obesity, class 1 E66.811 ; BMI 31.0-31.9,adult Z68.31 ; Essential hypertension I10 and Encounter for examination of blood pressure with abnormal findings Z01.31 [facility] [address] [address] 03/20/2025 Avis Normoyle Assessments Encounter Date Diagnosis (ICD Code) Assessment Notes Treatment Notes Treatment Clinical Notes Section Notes 03/20/2025 Other obesity due to excess calories (ICD-10 - E66.09) Maikel is a 45 year old male who presents for weight management consult. Medical history, labs, allergies, medications, and social history reviewed with the patient. Provided education on healthy diet and lifestyle which includes high-protein, low carbohydrate, high-fiber, and a variety of fruits and vegetables. Patient encouraged to exercise with emphasis on resistance training minimum 3 times per week to maintain muscle mass and cardio to burn fat. All patient questions answered. Patient will follow-up in 4 weeks for weight management. #Obesity: 03/20/25: Weight 222.8 pounds, BMI 32.9. Patient has been following a mindful diet high in protein and avoids foods high in sugar, processed foods, fried foods for the past 6 months. He has also been exercising to the best of his ability after spine surgeries including walking daily and weight training with low weights a few times per week. Despite these lifestyle modifications, patient is unable to lose much weight. Highest weight was 235 pounds. Patient is requesting to start Zepbound. Educated of side effects including constipation, nausea, muscle loss, hair thinning. Will submit PA today. Follow-up in 4 weeks. #Hypertension: Patient follows with PCP. BP elevated today 144/82. Patient denies headache or vision changes. Continue amlodipine and losartan Patient was reassured and welcomed to the practice. We discussed that we stress a hollistic medical approach with emphasis on lifestyle modification. Patient was informed that a healthy lifestyle with exercise and good eating habits can help reduce his risk of medical complications. Patient is explained that obesity increases his risk of diabetes, cardiovascular disease, or organ damage. We spent a lot of time discussing the relationship between food, exercise, sleep, mental health and obesity. Patient was counseled on the importance EATING local, organic food when possible. Patient was educated on clean 15 and dirty dozen. I provided information about reading books called The Food Rules by Wade Whittaker and Eat Fat Get Lean by Dr Juan Valero. Self education is important in the journey for weight management. Patient was offered diagnostic testing/ SECA scale. We want to measure visceral adiposity, advanced body composition, adverse lipids, fatty acid balance, risk for heart disease and atherosclerosis, markers of inflammation and genetic susceptibility. Patient was counseled on weight management and was advised to lose weight using A. Meal Replacement Products Patient was educated on the replacement products called optifast. This is a good way of taking fixed amount of calories. It has been shown in studies to be ineffective weight management tool. This however has to be coupled with lifestyle intervention as well as laboratory data and EKG monitoring. It is impossible to know how a person will tolerate complete meal replacement. The side effects of meal replacement and weight loss could include syncopal attacks, dizziness, gallstones, potential cholecystectomy, possible heart attack and even . The benefits of meal replacement would be potential weight loss but no guarantees can be made. Meal replacement products are not covered by insurance. Once the patient has bought these products we cannot return them B. Lifestyle management which includes several strategies as below 1. Eat a low carbohydrate good fat good protein diet. Eliminate refined carbohydrates from the diet. Limit sugared beverages. Eat local organic when possible. Cook your own meals. Read food labels. Focus on healthy snacks. Portion control and food with low glycemic index 2. Exercise regularly. Try to get at least 6000 steps a day. Use a predominant to track activity level. Consider using apps like 7 minute excercise, myMy-Hammerpal, lose it, stick as needed for self-monitoring and weight management. Consider group exercises. Consider hiring a interpersonal communications professor. Regular exercise is mendez to sustainable health and prevents as a buffer against weight regain 3. Sleep is most important for healing. Try to sleep at least 6-8 hours a night. A good quality sleep needs a sleep ritual with ideal room temperature of around 68. It might help to take a shower and have no electronics in the room and sleep in a very dark room without artificial light. Start sleep routine and get up early in the morning and go to bed on time. 4. Make a social connection. Surround yourself with positive people with positive energy. Connect with friends and family. 5. Get into the habit of meditating and mindfulness while doing everything. 6. Go outside and connect with nature. C. Prescription medications Patient was educated on the use of prescription medications for medical weight loss. This is a growing list and includes phentermine, Topamax,Qsymia, contrave, belviq and saxenda, wegovy etc. All prescription medications could have side effects including but not limited to kidney stones, seizure disorder cardiac arrhythmias heart attack pancreatitis, GI effects, Etc. Patient was encouraged to read the prescription insert and have coaching with their pharmacist and make an informed decision about taking medication and know that these medications are being prescribed with good intentions and we do not know how a patient would react to her medication. Some medications are FDA approved for weight loss and there is also off label use depending on patient's inability to afford medications in an attempt to lose weight D. Behavioral counseling was done to establish a relationship between food and an mood. Patient was provided information about local counseling and psychiatry and Dr Phillips at [facility]. We would like to cover regular topics and build on low glycemic eating exercise mindful eating, using yoga and meditation along with deep breathing and connecting with friends and family. E. MASS PAT reviewed, Patient's current medications were reviewed and opinion was given on medication that can cause weight gain and can be substituted F. Patient was assessed for risk with obesity including and not limiting to atherosclerosis heart disease stroke kidney disease, restrictive lung disease, irritable bowel syndrome and overall mortality. Risk of developing prediabetes diabetes and metabolic syndrome was discussed G. Therapeutic plan: We have decided to make therapeutic plan which would include choosing wisely on calories restricting portion getting active, tracking weight, getting good quality sleep and working on time management H. Patient will follow up in 4 weeks for weight management Total time spent today was 60 minutes of which greater than 50% was spent on coordinating and counseling Case discussed with collaborating physician Chloe Cordova who reviewed the assessment and plan. Chart, medications, labs, vital signs reviewed. Dictation was accomplished with the use of PAAY voice recognition software, prone to medical misidentifications and grammatical errors. This is unintentional and the practitioner does try to identify and correct these, but some could still be present. Please do not hesitate to contact practitioner for clarification. All questions answered to patients satisfaction. Patient verbalized understanding of diagnosis and treatments explained. To call sooner prior to next visit it any questions/concerns arise. 03/20/2025 Body mass index [BMI] 32.0-32.9, adult (ICD-10 - Z68.32) Maikel is a 45 year old male who presents for weight management consult. Medical history, labs, allergies, medications, and social history reviewed with the patient. Provided education on healthy diet and lifestyle which includes high-protein, low carbohydrate, high-fiber, and a variety of fruits and vegetables. Patient encouraged to exercise with emphasis on resistance training minimum 3 times per week to maintain muscle mass and cardio to burn fat. All patient questions answered. Patient will follow-up in 4 weeks for weight management. #Obesity: 03/20/25: Weight 222.8 pounds, BMI 32.9. Patient has been following a mindful diet high in protein and avoids foods high in sugar, processed foods, fried foods for the past 6 months. He has also been exercising to the best of his ability after spine surgeries including walking daily and weight training with low weights a few times per week. Despite these lifestyle modifications, patient is unable to lose much weight. Highest weight was 235 pounds. Patient is requesting to start Zepbound. Educated of side effects including constipation, nausea, muscle loss, hair thinning. Will submit PA today. Follow-up in 4 weeks. #Hypertension: Patient follows with PCP. BP elevated today 144/82. Patient denies headache or vision changes. Continue amlodipine and losartan Patient was reassured and welcomed to the practice. We discussed that we stress a hollistic medical approach with emphasis on lifestyle modification. Patient was informed that a healthy lifestyle with exercise and good eating habits can help reduce his risk of medical complications. Patient is explained that obesity increases his risk of diabetes, cardiovascular disease, or organ damage. We spent a lot of time discussing the relationship between food, exercise, sleep, mental health and obesity. Patient was counseled on the importance EATING local, organic food when possible. Patient was educated on clean 15 and dirty dozen. I provided information about reading books called The Food Rules by Wade Whittaker and Eat Fat Get Lean by Dr Juan Valero. Self education is important in the journey for weight management. Patient was offered diagnostic testing/ SECA scale. We want to measure visceral adiposity, advanced body composition, adverse lipids, fatty acid balance, risk for heart disease and atherosclerosis, markers of inflammation and genetic susceptibility. Patient was counseled on weight management and was advised to lose weight using A. Meal Replacement Products Patient was educated on the replacement products called optifast. This is a good way of taking fixed amount of calories. It has been shown in studies to be ineffective weight management tool. This however has to be coupled with lifestyle intervention as well as laboratory data and EKG monitoring. It is impossible to know how a person will tolerate complete meal replacement. The side effects of meal replacement and weight loss could include syncopal attacks, dizziness, gallstones, potential cholecystectomy, possible heart attack and even . The benefits of meal replacement would be potential weight loss but no guarantees can be made. Meal replacement products are not covered by insurance. Once the patient has bought these products we cannot return them B. Lifestyle management which includes several strategies as below 1. Eat a low carbohydrate good fat good protein diet. Eliminate refined carbohydrates from the diet. Limit sugared beverages. Eat local organic when possible. Cook your own meals. Read food labels. Focus on healthy snacks. Portion control and food with low glycemic index 2. Exercise regularly. Try to get at least 6000 steps a day. Use a predominant to track activity level. Consider using apps like 7 minute excercise, [employer] Communicationpal, lose it, stick as needed for self-monitoring and weight management. Consider group exercises. Consider hiring a interpersonal communications professor. Regular exercise is mendez to sustainable health and prevents as a buffer against weight regain 3. Sleep is most important for healing. Try to sleep at least 6-8 hours a night. A good quality sleep needs a sleep ritual with ideal room temperature of around 68. It might help to take a shower and have no electronics in the room and sleep in a very dark room without artificial light. Start sleep routine and get up early in the morning and go to bed on time. 4. Make a social connection. Surround yourself with positive people with positive energy. Connect with friends and family. 5. Get into the habit of meditating and mindfulness while doing everything. 6. Go outside and connect with nature. C. Prescription medications Patient was educated on the use of prescription medications for medical weight loss. This is a growing list and includes phentermine, Topamax,Qsymia, contrave, belviq and saxenda, wegovy etc. All prescription medications could have side effects including but not limited to kidney stones, seizure disorder cardiac arrhythmias heart attack pancreatitis, GI effects, Etc. Patient was encouraged to read the prescription insert and have coaching with their pharmacist and make an informed decision about taking medication and know that these medications are being prescribed with good intentions and we do not know how a patient would react to her medication. Some medications are FDA approved for weight loss and there is also off label use depending on patient's inability to afford medications in an attempt to lose weight D. Behavioral counseling was done to establish a relationship between food and an mood. Patient was provided information about local counseling and psychiatry and Dr Phillips at [facility]. We would like to cover regular topics and build on low glycemic eating exercise mindful eating, using yoga and meditation along with deep breathing and connecting with friends and family. E. MASS PAT reviewed, Patient's current medications were reviewed and opinion was given on medication that can cause weight gain and can be substituted F. Patient was assessed for risk with obesity including and not limiting to atherosclerosis heart disease stroke kidney disease, restrictive lung disease, irritable bowel syndrome and overall mortality. Risk of developing prediabetes diabetes and metabolic syndrome was discussed G. Therapeutic plan: We have decided to make therapeutic plan which would include choosing wisely on calories restricting portion getting active, tracking weight, getting good quality sleep and working on time management H. Patient will follow up in 4 weeks for weight management Total time spent today was 60 minutes of which greater than 50% was spent on coordinating and counseling Case discussed with collaborating physician Chloe Cordova who reviewed the assessment and plan. Chart, medications, labs, vital signs reviewed. Dictation was accomplished with the use of PAAY voice recognition software, prone to medical misidentifications and grammatical errors. This is unintentional and the practitioner does try to identify and correct these, but some could still be present. Please do not hesitate to contact practitioner for clarification. All questions answered to patients satisfaction. Patient verbalized understanding of diagnosis and treatments explained. To call sooner prior to next visit it any questions/concerns arise. 04/20/2025 BMI 31.0-31.9,adult (ICD-10 - Z68.31) Maikel is a 45 year old male who presents for weight management consult. Medical history, labs, allergies, medications, and social history reviewed with the patient. Provided education on healthy diet and lifestyle which includes high-protein, low carbohydrate, high-fiber, and a variety of fruits and vegetables. Patient encouraged to exercise with emphasis on resistance training minimum 3 times per week to maintain muscle mass and cardio to burn fat. All patient questions answered. Patient will follow-up in 4 weeks for weight management. #Obesity: 03/20/25: Weight 222.8 pounds, BMI 32.9. Patient has been following a mindful diet high in protein and avoids foods high in sugar, processed foods, fried foods for the past 6 months. He has also been exercising to the best of his ability after spine surgeries including walking daily and weight training with low weights a few times per week. Despite these lifestyle modifications, patient is unable to lose much weight. Highest weight was 235 pounds. Patient is requesting to start Zepbound. Educated of side effects including constipation, nausea, muscle loss, hair thinning. Will submit PA today. Follow-up in 4 weeks. 04/20/2025: Weight 215.1 pounds, BMI 31.76. Patient congratulated on effort. Reviewed in body scan, he has lost 3 pounds of fat mass, visceral adipose tissue decreased from 5.0 to 3.7, weight circumference decreased from 44 to 41. Unfortunately, skeletal muscle mass decreased 3 pounds. Patient states he plans on exercising more and continues to focus on protein intake. He states over the past week he feels as if he plateaued and is hoping to go up on his dose. Plan to increase to Zepbound 5 mg weekly injections. Follow-up in 4 weeks. #Hypertension: Patient follows with PCP. BP elevated today 140/80. He states he did not take his BP medication yet today. He is unsure of his antihypertensive doses.Patient encouraged to follow-up with PCP regarding possible increase in dose. Patient was reassured and welcomed to the practice. We discussed that we stress a hollistic medical approach with emphasis on lifestyle modification. Patient was informed that a healthy lifestyle with exercise and good eating habits can help reduce his risk of medical complications. Patient is explained that obesity increases his risk of diabetes, cardiovascular disease, or organ damage. We spent a lot of time discussing the relationship between food, exercise, sleep, mental health and obesity. Patient was counseled on the importance EATING local, organic food when possible. Patient was educated on clean 15 and dirty dozen. I provided information about reading books called The Food Rules by Wade Whittaker and Eat Fat Get Lean by Dr Juan Valero. Self education is important in the journey for weight management. Patient was offered diagnostic testing/ SECA scale. We want to measure visceral adiposity, advanced body composition, adverse lipids, fatty acid balance, risk for heart disease and atherosclerosis, markers of inflammation and genetic susceptibility. Patient was counseled on weight management and was advised to lose weight using A. Meal Replacement Products Patient was educated on the replacement products called optifast. This is a good way of taking fixed amount of calories. It has been shown in studies to be ineffective weight management tool. This however has to be coupled with lifestyle intervention as well as laboratory data and EKG monitoring. It is impossible to know how a person will tolerate complete meal replacement. The side effects of meal replacement and weight loss could include syncopal attacks, dizziness, gallstones, potential cholecystectomy, possible heart attack and even . The benefits of meal replacement would be potential weight loss but no guarantees can be made. Meal replacement products are not covered by insurance. Once the patient has bought these products we cannot return them B. Lifestyle management which includes several strategies as below 1. Eat a low carbohydrate good fat good protein diet. Eliminate refined carbohydrates from the diet. Limit sugared beverages. Eat local organic when possible. Cook your own meals. Read food labels. Focus on healthy snacks. Portion control and food with low glycemic index 2. Exercise regularly. Try to get at least 6000 steps a day. Use a predominant to track activity level. Consider using apps like 7 minute excercise, myfitJabong.compal, lose it, stick as needed for self-monitoring and weight management. Consider group exercises. Consider hiring a interpersonal communications professor. Regular exercise is mendez to sustainable health and prevents as a buffer against weight regain 3. Sleep is most important for healing. Try to sleep at least 6-8 hours a night. A good quality sleep needs a sleep ritual with ideal room temperature of around 68. It might help to take a shower and have no electronics in the room and sleep in a very dark room without artificial light. Start sleep routine and get up early in the morning and go to bed on time. 4. Make a social connection. Surround yourself with positive people with positive energy. Connect with friends and family. 5. Get into the habit of meditating and mindfulness while doing everything. 6. Go outside and connect with nature. C. Prescription medications Patient was educated on the use of prescription medications for medical weight loss. This is a growing list and includes phentermine, Topamax,Qsymia, contrave, belviq and saxenda, wegovy etc. All prescription medications could have side effects including but not limited to kidney stones, seizure disorder cardiac arrhythmias heart attack pancreatitis, GI effects, Etc. Patient was encouraged to read the prescription insert and have coaching with their pharmacist and make an informed decision about taking medication and know that these medications are being prescribed with good intentions and we do not know how a patient would react to her medication. Some medications are FDA approved for weight loss and there is also off label use depending on patient's inability to afford medications in an attempt to lose weight D. Behavioral counseling was done to establish a relationship between food and an mood. Patient was provided information about local counseling and psychiatry and Dr Phillips at [facility]. We would like to cover regular topics and build on low glycemic eating exercise mindful eating, using yoga and meditation along with deep breathing and connecting with friends and family. E. MASS PAT reviewed, Patient's current medications were reviewed and opinion was given on medication that can cause weight gain and can be substituted F. Patient was assessed for risk with obesity including and not limiting to atherosclerosis heart disease stroke kidney disease, restrictive lung disease, irritable bowel syndrome and overall mortality. Risk of developing prediabetes diabetes and metabolic syndrome was discussed G. Therapeutic plan: We have decided to make therapeutic plan which would include choosing wisely on calories restricting portion getting active, tracking weight, getting good quality sleep and working on time management H. Patient will follow up in 4 weeks for weight management Total time spent today was 60 minutes of which greater than 50% was spent on coordinating and counseling Case discussed with collaborating physician Chloe Cordova who reviewed the assessment and plan. Chart, medications, labs, vital signs reviewed. Dictation was accomplished with the use of PAAY voice recognition software, prone to medical misidentifications and grammatical errors. This is unintentional and the practitioner does try to identify and correct these, but some could still be present. Please do not hesitate to contact practitioner for clarification. All questions answered to patients satisfaction. Patient verbalized understanding of diagnosis and treatments explained. To call sooner prior to next visit it any questions/concerns arise. 04/20/2025 Obesity, class 1 (ICD-10 - E66.811) Maikel is a 45 year old male who presents for weight management consult. Medical history, labs, allergies, medications, and social history reviewed with the patient. Provided education on healthy diet and lifestyle which includes high-protein, low carbohydrate, high-fiber, and a variety of fruits and vegetables. Patient encouraged to exercise with emphasis on resistance training minimum 3 times per week to maintain muscle mass and cardio to burn fat. All patient questions answered. Patient will follow-up in 4 weeks for weight management. #Obesity: 03/20/25: Weight 222.8 pounds, BMI 32.9. Patient has been following a mindful diet high in protein and avoids foods high in sugar, processed foods, fried foods for the past 6 months. He has also been exercising to the best of his ability after spine surgeries including walking daily and weight training with low weights a few times per week. Despite these lifestyle modifications, patient is unable to lose much weight. Highest weight was 235 pounds. Patient is requesting to start Zepbound. Educated of side effects including constipation, nausea, muscle loss, hair thinning. Will submit PA today. Follow-up in 4 weeks. 04/20/2025: Weight 215.1 pounds, BMI 31.76. Patient congratulated on effort. Reviewed in body scan, he has lost 3 pounds of fat mass, visceral adipose tissue decreased from 5.0 to 3.7, weight circumference decreased from 44 to 41. Unfortunately, skeletal muscle mass decreased 3 pounds. Patient states he plans on exercising more and continues to focus on protein intake. He states over the past week he feels as if he plateaued and is hoping to go up on his dose. Plan to increase to Zepbound 5 mg weekly injections. Follow-up in 4 weeks. #Hypertension: Patient follows with PCP. BP elevated today 140/80. He states he did not take his BP medication yet today. He is unsure of his antihypertensive doses.Patient encouraged to follow-up with PCP regarding possible increase in dose. Patient was reassured and welcomed to the practice. We discussed that we stress a hollistic medical approach with emphasis on lifestyle modification. Patient was informed that a healthy lifestyle with exercise and good eating habits can help reduce his risk of medical complications. Patient is explained that obesity increases his risk of diabetes, cardiovascular disease, or organ damage. We spent a lot of time discussing the relationship between food, exercise, sleep, mental health and obesity. Patient was counseled on the importance EATING local, organic food when possible. Patient was educated on clean 15 and dirty dozen. I provided information about reading books called The Food Rules by Wade Whittaker and Eat Fat Get Lean by Dr Juan Valero. Self education is important in the journey for weight management. Patient was offered diagnostic testing/ SECA scale. We want to measure visceral adiposity, advanced body composition, adverse lipids, fatty acid balance, risk for heart disease and atherosclerosis, markers of inflammation and genetic susceptibility. Patient was counseled on weight management and was advised to lose weight using A. Meal Replacement Products Patient was educated on the replacement products called optifast. This is a good way of taking fixed amount of calories. It has been shown in studies to be ineffective weight management tool. This however has to be coupled with lifestyle intervention as well as laboratory data and EKG monitoring. It is impossible to know how a person will tolerate complete meal replacement. The side effects of meal replacement and weight loss could include syncopal attacks, dizziness, gallstones, potential cholecystectomy, possible heart attack and even . The benefits of meal replacement would be potential weight loss but no guarantees can be made. Meal replacement products are not covered by insurance. Once the patient has bought these products we cannot return them B. Lifestyle management which includes several strategies as below 1. Eat a low carbohydrate good fat good protein diet. Eliminate refined carbohydrates from the diet. Limit sugared beverages. Eat local organic when possible. Cook your own meals. Read food labels. Focus on healthy snacks. Portion control and food with low glycemic index 2. Exercise regularly. Try to get at least 6000 steps a day. Use a predominant to track activity level. Consider using apps like 7 minute excercise, myMy-Hammerpal, lose it, stick as needed for self-monitoring and weight management. Consider group exercises. Consider hiring a interpersonal communications professor. Regular exercise is mendez to sustainable health and prevents as a buffer against weight regain 3. Sleep is most important for healing. Try to sleep at least 6-8 hours a night. A good quality sleep needs a sleep ritual with ideal room temperature of around 68. It might help to take a shower and have no electronics in the room and sleep in a very dark room without artificial light. Start sleep routine and get up early in the morning and go to bed on time. 4. Make a social connection. Surround yourself with positive people with positive energy. Connect with friends and family. 5. Get into the habit of meditating and mindfulness while doing everything. 6. Go outside and connect with nature. C. Prescription medications Patient was educated on the use of prescription medications for medical weight loss. This is a growing list and includes phentermine, Topamax,Qsymia, contrave, belviq and saxenda, wegovy etc. All prescription medications could have side effects including but not limited to kidney stones, seizure disorder cardiac arrhythmias heart attack pancreatitis, GI effects, Etc. Patient was encouraged to read the prescription insert and have coaching with their pharmacist and make an informed decision about taking medication and know that these medications are being prescribed with good intentions and we do not know how a patient would react to her medication. Some medications are FDA approved for weight loss and there is also off label use depending on patient's inability to afford medications in an attempt to lose weight D. Behavioral counseling was done to establish a relationship between food and an mood. Patient was provided information about local counseling and psychiatry and Dr Phillips at [facility]. We would like to cover regular topics and build on low glycemic eating exercise mindful eating, using yoga and meditation along with deep breathing and connecting with friends and family. E. MASS PAT reviewed, Patient's current medications were reviewed and opinion was given on medication that can cause weight gain and can be substituted F. Patient was assessed for risk with obesity including and not limiting to atherosclerosis heart disease stroke kidney disease, restrictive lung disease, irritable bowel syndrome and overall mortality. Risk of developing prediabetes diabetes and metabolic syndrome was discussed G. Therapeutic plan: We have decided to make therapeutic plan which would include choosing wisely on calories restricting portion getting active, tracking weight, getting good quality sleep and working on time management H. Patient will follow up in 4 weeks for weight management Total time spent today was 60 minutes of which greater than 50% was spent on coordinating and counseling Case discussed with collaborating physician Chloe Cordova who reviewed the assessment and plan. Chart, medications, labs, vital signs reviewed. Dictation was accomplished with the use of PAAY voice recognition software, prone to medical misidentifications and grammatical errors. This is unintentional and the practitioner does try to identify and correct these, but some could still be present. Please do not hesitate to contact practitioner for clarification. All questions answered to patients satisfaction. Patient verbalized understanding of diagnosis and treatments explained. To call sooner prior to next visit it any questions/concerns arise. 05/19/2025 BMI 31.0-31.9,adult (ICD-10 - Z68.31) Maikel is a 45 year old male who presents for weight management consult. Medical history, labs, allergies, medications, and social history reviewed with the patient. Provided education on healthy diet and lifestyle which includes high-protein, low carbohydrate, high-fiber, and a variety of fruits and vegetables. Patient encouraged to exercise with emphasis on resistance training minimum 3 times per week to maintain muscle mass and cardio to burn fat. All patient questions answered. Patient will follow-up in 4 weeks for weight management. #Obesity: 03/20/25: Weight 222.8 pounds, BMI 32.9. Patient has been following a mindful diet high in protein and avoids foods high in sugar, processed foods, fried foods for the past 6 months. He has also been exercising to the best of his ability after spine surgeries including walking daily and weight training with low weights a few times per week. Despite these lifestyle modifications, patient is unable to lose much weight. Highest weight was 235 pounds. Patient is requesting to start Zepbound. Educated of side effects including constipation, nausea, muscle loss, hair thinning. Will submit PA today. Follow-up in 4 weeks. 04/20/2025: Weight 215.1 pounds, BMI 31.76. Patient congratulated on effort. Reviewed in body scan, he has lost 3 pounds of fat mass, visceral adipose tissue decreased from 5.0 to 3.7, weight circumference decreased from 44 to 41. Unfortunately, skeletal muscle mass decreased 3 pounds. Patient states he plans on exercising more and continues to focus on protein intake. He states over the past week he feels as if he plateaued and is hoping to go up on his dose. Plan to increase to Zepbound 5 mg weekly injections. Follow-up in 4 weeks. 05/19/2025: Weight 211.7 pounds, BMI 31.26. Congratulated on effort. Down 4 pounds overall from last visit, fat mass decreased 8 pounds, muscle mass increased 2 pounds, visceral adipose tissue maintained at 3.7, waist circumference is maintained at 41 inches. Plan to increase to Zepbound 7.5 mg weekly injections. Follow-up in 4 weeks. #Hypertension: Patient follows with PCP. Recently was started on amlodipine and losartan, patient is unsure of dosing. Initial BP 130/100, repeat 136/84. Will continue to monitor Patient was reassured and welcomed to the practice. We discussed that we stress a hollistic medical approach with emphasis on lifestyle modification. Patient was informed that a healthy lifestyle with exercise and good eating habits can help reduce his risk of medical complications. Patient is explained that obesity increases his risk of diabetes, cardiovascular disease, or organ damage. We spent a lot of time discussing the relationship between food, exercise, sleep, mental health and obesity. Patient was counseled on the importance EATING local, organic food when possible. Patient was educated on clean 15 and dirty dozen. I provided information about reading books called The Food Rules by Wade Whittaker and Eat Fat Get Lean by Dr Juan Valeor. Self education is important in the journey for weight management. Patient was offered diagnostic testing/ SECA scale. We want to measure visceral adiposity, advanced body composition, adverse lipids, fatty acid balance, risk for heart disease and atherosclerosis, markers of inflammation and genetic susceptibility. Patient was counseled on weight management and was advised to lose weight using A. Meal Replacement Products Patient was educated on the replacement products called optifast. This is a good way of taking fixed amount of calories. It has been shown in studies to be ineffective weight management tool. This however has to be coupled with lifestyle intervention as well as laboratory data and EKG monitoring. It is impossible to know how a person will tolerate complete meal replacement. The side effects of meal replacement and weight loss could include syncopal attacks, dizziness, gallstones, potential cholecystectomy, possible heart attack and even . The benefits of meal replacement would be potential weight loss but no guarantees can be made. Meal replacement products are not covered by insurance. Once the patient has bought these products we cannot return them B. Lifestyle management which includes several strategies as below 1. Eat a low carbohydrate good fat good protein diet. Eliminate refined carbohydrates from the diet. Limit sugared beverages. Eat local organic when possible. Cook your own meals. Read food labels. Focus on healthy snacks. Portion control and food with low glycemic index 2. Exercise regularly. Try to get at least 6000 steps a day. Use a predominant to track activity level. Consider using apps like 7 minute excercise, myfitnesspal, lose it, stick as needed for self-monitoring and weight management. Consider group exercises. Consider hiring a interpersonal communications professor. Regular exercise is mendez to sustainable health and prevents as a buffer against weight regain 3. Sleep is most important for healing. Try to sleep at least 6-8 hours a night. A good quality sleep needs a sleep ritual with ideal room temperature of around 68. It might help to take a shower and have no electronics in the room and sleep in a very dark room without artificial light. Start sleep routine and get up early in the morning and go to bed on time. 4. Make a social connection. Surround yourself with positive people with positive energy. Connect with friends and family. 5. Get into the habit of meditating and mindfulness while doing everything. 6. Go outside and connect with nature. C. Prescription medications Patient was educated on the use of prescription medications for medical weight loss. This is a growing list and includes phentermine, Topamax,Qsymia, contrave, belviq and saxenda, wegovy etc. All prescription medications could have side effects including but not limited to kidney stones, seizure disorder cardiac arrhythmias heart attack pancreatitis, GI effects, Etc. Patient was encouraged to read the prescription insert and have coaching with their pharmacist and make an informed decision about taking medication and know that these medications are being prescribed with good intentions and we do not know how a patient would react to her medication. Some medications are FDA approved for weight loss and there is also off label use depending on patient's inability to afford medications in an attempt to lose weight D. Behavioral counseling was done to establish a relationship between food and an mood. Patient was provided information about local counseling and psychiatry and Dr Phillips at [facility]. We would like to cover regular topics and build on low glycemic eating exercise mindful eating, using yoga and meditation along with deep breathing and connecting with friends and family. E. MASS PAT reviewed, Patient's current medications were reviewed and opinion was given on medication that can cause weight gain and can be substituted F. Patient was assessed for risk with obesity including and not limiting to atherosclerosis heart disease stroke kidney disease, restrictive lung disease, irritable bowel syndrome and overall mortality. Risk of developing prediabetes diabetes and metabolic syndrome was discussed G. Therapeutic plan: We have decided to make therapeutic plan which would include choosing wisely on calories restricting portion getting active, tracking weight, getting good quality sleep and working on time management H. Patient will follow up in 4 weeks for weight management Total time spent today was 60 minutes of which greater than 50% was spent on coordinating and counseling Case discussed with collaborating physician Chloe Cordova who reviewed the assessment and plan. Chart, medications, labs, vital signs reviewed. Dictation was accomplished with the use of PAAY voice recognition software, prone to medical misidentifications and grammatical errors. This is unintentional and the practitioner does try to identify and correct these, but some could still be present. Please do not hesitate to contact practitioner for clarification. All questions answered to patients satisfaction. Patient verbalized understanding of diagnosis and treatments explained. To call sooner prior to next visit it any questions/concerns arise. 05/19/2025 Obesity, class 1 (ICD-10 - E66.811) Maikel is a 45 year old male who presents for weight management consult. Medical history, labs, allergies, medications, and social history reviewed with the patient. Provided education on healthy diet and lifestyle which includes high-protein, low carbohydrate, high-fiber, and a variety of fruits and vegetables. Patient encouraged to exercise with emphasis on resistance training minimum 3 times per week to maintain muscle mass and cardio to burn fat. All patient questions answered. Patient will follow-up in 4 weeks for weight management. #Obesity: 03/20/25: Weight 222.8 pounds, BMI 32.9. Patient has been following a mindful diet high in protein and avoids foods high in sugar, processed foods, fried foods for the past 6 months. He has also been exercising to the best of his ability after spine surgeries including walking daily and weight training with low weights a few times per week. Despite these lifestyle modifications, patient is unable to lose much weight. Highest weight was 235 pounds. Patient is requesting to start Zepbound. Educated of side effects including constipation, nausea, muscle loss, hair thinning. Will submit PA today. Follow-up in 4 weeks. 04/20/2025: Weight 215.1 pounds, BMI 31.76. Patient congratulated on effort. Reviewed in body scan, he has lost 3 pounds of fat mass, visceral adipose tissue decreased from 5.0 to 3.7, weight circumference decreased from 44 to 41. Unfortunately, skeletal muscle mass decreased 3 pounds. Patient states he plans on exercising more and continues to focus on protein intake. He states over the past week he feels as if he plateaued and is hoping to go up on his dose. Plan to increase to Zepbound 5 mg weekly injections. Follow-up in 4 weeks. 05/19/2025: Weight 211.7 pounds, BMI 31.26. Congratulated on effort. Down 4 pounds overall from last visit, fat mass decreased 8 pounds, muscle mass increased 2 pounds, visceral adipose tissue maintained at 3.7, waist circumference is maintained at 41 inches. Plan to increase to Zepbound 7.5 mg weekly injections. Follow-up in 4 weeks. #Hypertension: Patient follows with PCP. Recently was started on amlodipine and losartan, patient is unsure of dosing. Initial BP 130/100, repeat 136/84. Will continue to monitor Patient was reassured and welcomed to the practice. We discussed that we stress a hollistic medical approach with emphasis on lifestyle modification. Patient was informed that a healthy lifestyle with exercise and good eating habits can help reduce his risk of medical complications. Patient is explained that obesity increases his risk of diabetes, cardiovascular disease, or organ damage. We spent a lot of time discussing the relationship between food, exercise, sleep, mental health and obesity. Patient was counseled on the importance EATING local, organic food when possible. Patient was educated on clean 15 and dirty dozen. I provided information about reading books called The Food Rules by Wade Whittaker and Eat Fat Get Lean by Dr Juan Valero. Self education is important in the journey for weight management. Patient was offered diagnostic testing/ SECA scale. We want to measure visceral adiposity, advanced body composition, adverse lipids, fatty acid balance, risk for heart disease and atherosclerosis, markers of inflammation and genetic susceptibility. Patient was counseled on weight management and was advised to lose weight using A. Meal Replacement Products Patient was educated on the replacement products called optifast. This is a good way of taking fixed amount of calories. It has been shown in studies to be ineffective weight management tool. This however has to be coupled with lifestyle intervention as well as laboratory data and EKG monitoring. It is impossible to know how a person will tolerate complete meal replacement. The side effects of meal replacement and weight loss could include syncopal attacks, dizziness, gallstones, potential cholecystectomy, possible heart attack and even . The benefits of meal replacement would be potential weight loss but no guarantees can be made. Meal replacement products are not covered by insurance. Once the patient has bought these products we cannot return them B. Lifestyle management which includes several strategies as below 1. Eat a low carbohydrate good fat good protein diet. Eliminate refined carbohydrates from the diet. Limit sugared beverages. Eat local organic when possible. Cook your own meals. Read food labels. Focus on healthy snacks. Portion control and food with low glycemic index 2. Exercise regularly. Try to get at least 6000 steps a day. Use a predominant to track activity level. Consider using apps like 7 minute excercise, myMy-Hammerpal, lose it, stick as needed for self-monitoring and weight management. Consider group exercises. Consider hiring a interpersonal communications professor. Regular exercise is mendez to sustainable health and prevents as a buffer against weight regain 3. Sleep is most important for healing. Try to sleep at least 6-8 hours a night. A good quality sleep needs a sleep ritual with ideal room temperature of around 68. It might help to take a shower and have no electronics in the room and sleep in a very dark room without artificial light. Start sleep routine and get up early in the morning and go to bed on time. 4. Make a social connection. Surround yourself with positive people with positive energy. Connect with friends and family. 5. Get into the habit of meditating and mindfulness while doing everything. 6. Go outside and connect with nature. C. Prescription medications Patient was educated on the use of prescription medications for medical weight loss. This is a growing list and includes phentermine, Topamax,Qsymia, contrave, belviq and saxenda, wegovy etc. All prescription medications could have side effects including but not limited to kidney stones, seizure disorder cardiac arrhythmias heart attack pancreatitis, GI effects, Etc. Patient was encouraged to read the prescription insert and have coaching with their pharmacist and make an informed decision about taking medication and know that these medications are being prescribed with good intentions and we do not know how a patient would react to her medication. Some medications are FDA approved for weight loss and there is also off label use depending on patient's inability to afford medications in an attempt to lose weight D. Behavioral counseling was done to establish a relationship between food and an mood. Patient was provided information about local counseling and psychiatry and Dr Phillips at [facility]. We would like to cover regular topics and build on low glycemic eating exercise mindful eating, using yoga and meditation along with deep breathing and connecting with friends and family. E. MASS PAT reviewed, Patient's current medications were reviewed and opinion was given on medication that can cause weight gain and can be substituted F. Patient was assessed for risk with obesity including and not limiting to atherosclerosis heart disease stroke kidney disease, restrictive lung disease, irritable bowel syndrome and overall mortality. Risk of developing prediabetes diabetes and metabolic syndrome was discussed G. Therapeutic plan: We have decided to make therapeutic plan which would include choosing wisely on calories restricting portion getting active, tracking weight, getting good quality sleep and working on time management H. Patient will follow up in 4 weeks for weight management Total time spent today was 60 minutes of which greater than 50% was spent on coordinating and counseling Case discussed with collaborating physician Chloe Cordova who reviewed the assessment and plan. Chart, medications, labs, vital signs reviewed. Dictation was accomplished with the use of PAAY voice recognition software, prone to medical misidentifications and grammatical errors. This is unintentional and the practitioner does try to identify and correct these, but some could still be present. Please do not hesitate to contact practitioner for clarification. All questions answered to patients satisfaction. Patient verbalized understanding of diagnosis and treatments explained. To call sooner prior to next visit it any questions/concerns arise. 04/20/2025 Essential hypertension (ICD-10 - I10) Maikel is a 45 year old male who presents for weight management consult. Medical history, labs, allergies, medications, and social history reviewed with the patient. Provided education on healthy diet and lifestyle which includes high-protein, low carbohydrate, high-fiber, and a variety of fruits and vegetables. Patient encouraged to exercise with emphasis on resistance training minimum 3 times per week to maintain muscle mass and cardio to burn fat. All patient questions answered. Patient will follow-up in 4 weeks for weight management. #Obesity: 03/20/25: Weight 222.8 pounds, BMI 32.9. Patient has been following a mindful diet high in protein and avoids foods high in sugar, processed foods, fried foods for the past 6 months. He has also been exercising to the best of his ability after spine surgeries including walking daily and weight training with low weights a few times per week. Despite these lifestyle modifications, patient is unable to lose much weight. Highest weight was 235 pounds. Patient is requesting to start Zepbound. Educated of side effects including constipation, nausea, muscle loss, hair thinning. Will submit PA today. Follow-up in 4 weeks. 04/20/2025: Weight 215.1 pounds, BMI 31.76. Patient congratulated on effort. Reviewed in body scan, he has lost 3 pounds of fat mass, visceral adipose tissue decreased from 5.0 to 3.7, weight circumference decreased from 44 to 41. Unfortunately, skeletal muscle mass decreased 3 pounds. Patient states he plans on exercising more and continues to focus on protein intake. He states over the past week he feels as if he plateaued and is hoping to go up on his dose. Plan to increase to Zepbound 5 mg weekly injections. Follow-up in 4 weeks. #Hypertension: Patient follows with PCP. BP elevated today 140/80. He states he did not take his BP medication yet today. He is unsure of his antihypertensive doses.Patient encouraged to follow-up with PCP regarding possible increase in dose. Patient was reassured and welcomed to the practice. We discussed that we stress a hollistic medical approach with emphasis on lifestyle modification. Patient was informed that a healthy lifestyle with exercise and good eating habits can help reduce his risk of medical complications. Patient is explained that obesity increases his risk of diabetes, cardiovascular disease, or organ damage. We spent a lot of time discussing the relationship between food, exercise, sleep, mental health and obesity. Patient was counseled on the importance EATING local, organic food when possible. Patient was educated on clean 15 and dirty dozen. I provided information about reading books called The Food Rules by Wade Whittaker and Eat Fat Get Lean by Dr Juan Valero. Self education is important in the journey for weight management. Patient was offered diagnostic testing/ SECA scale. We want to measure visceral adiposity, advanced body composition, adverse lipids, fatty acid balance, risk for heart disease and atherosclerosis, markers of inflammation and genetic susceptibility. Patient was counseled on weight management and was advised to lose weight using A. Meal Replacement Products Patient was educated on the replacement products called optifast. This is a good way of taking fixed amount of calories. It has been shown in studies to be ineffective weight management tool. This however has to be coupled with lifestyle intervention as well as laboratory data and EKG monitoring. It is impossible to know how a person will tolerate complete meal replacement. The side effects of meal replacement and weight loss could include syncopal attacks, dizziness, gallstones, potential cholecystectomy, possible heart attack and even . The benefits of meal replacement would be potential weight loss but no guarantees can be made. Meal replacement products are not covered by insurance. Once the patient has bought these products we cannot return them B. Lifestyle management which includes several strategies as below 1. Eat a low carbohydrate good fat good protein diet. Eliminate refined carbohydrates from the diet. Limit sugared beverages. Eat local organic when possible. Cook your own meals. Read food labels. Focus on healthy snacks. Portion control and food with low glycemic index 2. Exercise regularly. Try to get at least 6000 steps a day. Use a predominant to track activity level. Consider using apps like 7 minute excercise, myMy-Hammerpal, lose it, stick as needed for self-monitoring and weight management. Consider group exercises. Consider hiring a interpersonal communications professor. Regular exercise is mendez to sustainable health and prevents as a buffer against weight regain 3. Sleep is most important for healing. Try to sleep at least 6-8 hours a night. A good quality sleep needs a sleep ritual with ideal room temperature of around 68. It might help to take a shower and have no electronics in the room and sleep in a very dark room without artificial light. Start sleep routine and get up early in the morning and go to bed on time. 4. Make a social connection. Surround yourself with positive people with positive energy. Connect with friends and family. 5. Get into the habit of meditating and mindfulness while doing everything. 6. Go outside and connect with nature. C. Prescription medications Patient was educated on the use of prescription medications for medical weight loss. This is a growing list and includes phentermine, Topamax,Qsymia, contrave, belviq and saxenda, wegovy etc. All prescription medications could have side effects including but not limited to kidney stones, seizure disorder cardiac arrhythmias heart attack pancreatitis, GI effects, Etc. Patient was encouraged to read the prescription insert and have coaching with their pharmacist and make an informed decision about taking medication and know that these medications are being prescribed with good intentions and we do not know how a patient would react to her medication. Some medications are FDA approved for weight loss and there is also off label use depending on patient's inability to afford medications in an attempt to lose weight D. Behavioral counseling was done to establish a relationship between food and an mood. Patient was provided information about local counseling and psychiatry and Dr Phillips at [facility]. We would like to cover regular topics and build on low glycemic eating exercise mindful eating, using yoga and meditation along with deep breathing and connecting with friends and family. E. MASS PAT reviewed, Patient's current medications were reviewed and opinion was given on medication that can cause weight gain and can be substituted F. Patient was assessed for risk with obesity including and not limiting to atherosclerosis heart disease stroke kidney disease, restrictive lung disease, irritable bowel syndrome and overall mortality. Risk of developing prediabetes diabetes and metabolic syndrome was discussed G. Therapeutic plan: We have decided to make therapeutic plan which would include choosing wisely on calories restricting portion getting active, tracking weight, getting good quality sleep and working on time management H. Patient will follow up in 4 weeks for weight management Total time spent today was 60 minutes of which greater than 50% was spent on coordinating and counseling Case discussed with collaborating physician Chloe Cordova who reviewed the assessment and plan. Chart, medications, labs, vital signs reviewed. Dictation was accomplished with the use of PAAY voice recognition software, prone to medical misidentifications and grammatical errors. This is unintentional and the practitioner does try to identify and correct these, but some could still be present. Please do not hesitate to contact practitioner for clarification. All questions answered to patients satisfaction. Patient verbalized understanding of diagnosis and treatments explained. To call sooner prior to next visit it any questions/concerns arise. 03/20/2025 Obesity, class 1 (ICD-10 - E66.811) Maikel is a 45 year old male who presents for weight management consult. Medical history, labs, allergies, medications, and social history reviewed with the patient. Provided education on healthy diet and lifestyle which includes high-protein, low carbohydrate, high-fiber, and a variety of fruits and vegetables. Patient encouraged to exercise with emphasis on resistance training minimum 3 times per week to maintain muscle mass and cardio to burn fat. All patient questions answered. Patient will follow-up in 4 weeks for weight management. #Obesity: 03/20/25: Weight 222.8 pounds, BMI 32.9. Patient has been following a mindful diet high in protein and avoids foods high in sugar, processed foods, fried foods for the past 6 months. He has also been exercising to the best of his ability after spine surgeries including walking daily and weight training with low weights a few times per week. Despite these lifestyle modifications, patient is unable to lose much weight. Highest weight was 235 pounds. Patient is requesting to start Zepbound. Educated of side effects including constipation, nausea, muscle loss, hair thinning. Will submit PA today. Follow-up in 4 weeks. #Hypertension: Patient follows with PCP. BP elevated today 144/82. Patient denies headache or vision changes. Continue amlodipine and losartan Patient was reassured and welcomed to the practice. We discussed that we stress a hollistic medical approach with emphasis on lifestyle modification. Patient was informed that a healthy lifestyle with exercise and good eating habits can help reduce his risk of medical complications. Patient is explained that obesity increases his risk of diabetes, cardiovascular disease, or organ damage. We spent a lot of time discussing the relationship between food, exercise, sleep, mental health and obesity. Patient was counseled on the importance EATING local, organic food when possible. Patient was educated on clean 15 and dirty dozen. I provided information about reading books called The Food Rules by Wade Whittaker and Eat Fat Get Lean by Dr Juan Valero. Self education is important in the journey for weight management. Patient was offered diagnostic testing/ SECA scale. We want to measure visceral adiposity, advanced body composition, adverse lipids, fatty acid balance, risk for heart disease and atherosclerosis, markers of inflammation and genetic susceptibility. Patient was counseled on weight management and was advised to lose weight using A. Meal Replacement Products Patient was educated on the replacement products called optifast. This is a good way of taking fixed amount of calories. It has been shown in studies to be ineffective weight management tool. This however has to be coupled with lifestyle intervention as well as laboratory data and EKG monitoring. It is impossible to know how a person will tolerate complete meal replacement. The side effects of meal replacement and weight loss could include syncopal attacks, dizziness, gallstones, potential cholecystectomy, possible heart attack and even . The benefits of meal replacement would be potential weight loss but no guarantees can be made. Meal replacement products are not covered by insurance. Once the patient has bought these products we cannot return them B. Lifestyle management which includes several strategies as below 1. Eat a low carbohydrate good fat good protein diet. Eliminate refined carbohydrates from the diet. Limit sugared beverages. Eat local organic when possible. Cook your own meals. Read food labels. Focus on healthy snacks. Portion control and food with low glycemic index 2. Exercise regularly. Try to get at least 6000 steps a day. Use a predominant to track activity level. Consider using apps like 7 minute excercise, [employer]pal, lose it, stick as needed for self-monitoring and weight management. Consider group exercises. Consider hiring a interpersonal communications professor. Regular exercise is mendez to sustainable health and prevents as a buffer against weight regain 3. Sleep is most important for healing. Try to sleep at least 6-8 hours a night. A good quality sleep needs a sleep ritual with ideal room temperature of around 68. It might help to take a shower and have no electronics in the room and sleep in a very dark room without artificial light. Start sleep routine and get up early in the morning and go to bed on time. 4. Make a social connection. Surround yourself with positive people with positive energy. Connect with friends and family. 5. Get into the habit of meditating and mindfulness while doing everything. 6. Go outside and connect with nature. C. Prescription medications Patient was educated on the use of prescription medications for medical weight loss. This is a growing list and includes phentermine, Topamax,Qsymia, contrave, belviq and saxenda, wegovy etc. All prescription medications could have side effects including but not limited to kidney stones, seizure disorder cardiac arrhythmias heart attack pancreatitis, GI effects, Etc. Patient was encouraged to read the prescription insert and have coaching with their pharmacist and make an informed decision about taking medication and know that these medications are being prescribed with good intentions and we do not know how a patient would react to her medication. Some medications are FDA approved for weight loss and there is also off label use depending on patient's inability to afford medications in an attempt to lose weight D. Behavioral counseling was done to establish a relationship between food and an mood. Patient was provided information about local counseling and psychiatry and Dr Phillips at [facility]. We would like to cover regular topics and build on low glycemic eating exercise mindful eating, using yoga and meditation along with deep breathing and connecting with friends and family. E. MASS PAT reviewed, Patient's current medications were reviewed and opinion was given on medication that can cause weight gain and can be substituted F. Patient was assessed for risk with obesity including and not limiting to atherosclerosis heart disease stroke kidney disease, restrictive lung disease, irritable bowel syndrome and overall mortality. Risk of developing prediabetes diabetes and metabolic syndrome was discussed G. Therapeutic plan: We have decided to make therapeutic plan which would include choosing wisely on calories restricting portion getting active, tracking weight, getting good quality sleep and working on time management H. Patient will follow up in 4 weeks for weight management Total time spent today was 60 minutes of which greater than 50% was spent on coordinating and counseling Case discussed with collaborating physician Chloe Cordova who reviewed the assessment and plan. Chart, medications, labs, vital signs reviewed. Dictation was accomplished with the use of PAAY voice recognition software, prone to medical misidentifications and grammatical errors. This is unintentional and the practitioner does try to identify and correct these, but some could still be present. Please do not hesitate to contact practitioner for clarification. All questions answered to patients satisfaction. Patient verbalized understanding of diagnosis and treatments explained. To call sooner prior to next visit it any questions/concerns arise. 04/20/2025 Encounter for examination of blood pressure with abnormal findings (ICD-10 - Z01.31) Maikel is a 45 year old male who presents for weight management consult. Medical history, labs, allergies, medications, and social history reviewed with the patient. Provided education on healthy diet and lifestyle which includes high-protein, low carbohydrate, high-fiber, and a variety of fruits and vegetables. Patient encouraged to exercise with emphasis on resistance training minimum 3 times per week to maintain muscle mass and cardio to burn fat. All patient questions answered. Patient will follow-up in 4 weeks for weight management. #Obesity: 03/20/25: Weight 222.8 pounds, BMI 32.9. Patient has been following a mindful diet high in protein and avoids foods high in sugar, processed foods, fried foods for the past 6 months. He has also been exercising to the best of his ability after spine surgeries including walking daily and weight training with low weights a few times per week. Despite these lifestyle modifications, patient is unable to lose much weight. Highest weight was 235 pounds. Patient is requesting to start Zepbound. Educated of side effects including constipation, nausea, muscle loss, hair thinning. Will submit PA today. Follow-up in 4 weeks. 04/20/2025: Weight 215.1 pounds, BMI 31.76. Patient congratulated on effort. Reviewed in body scan, he has lost 3 pounds of fat mass, visceral adipose tissue decreased from 5.0 to 3.7, weight circumference decreased from 44 to 41. Unfortunately, skeletal muscle mass decreased 3 pounds. Patient states he plans on exercising more and continues to focus on protein intake. He states over the past week he feels as if he plateaued and is hoping to go up on his dose. Plan to increase to Zepbound 5 mg weekly injections. Follow-up in 4 weeks. #Hypertension: Patient follows with PCP. BP elevated today 140/80. He states he did not take his BP medication yet today. He is unsure of his antihypertensive doses.Patient encouraged to follow-up with PCP regarding possible increase in dose. Patient was reassured and welcomed to the practice. We discussed that we stress a hollistic medical approach with emphasis on lifestyle modification. Patient was informed that a healthy lifestyle with exercise and good eating habits can help reduce his risk of medical complications. Patient is explained that obesity increases his risk of diabetes, cardiovascular disease, or organ damage. We spent a lot of time discussing the relationship between food, exercise, sleep, mental health and obesity. Patient was counseled on the importance EATING local, organic food when possible. Patient was educated on clean 15 and dirty dozen. I provided information about reading books called The Food Rules by Wade Whittaker and Eat Fat Get Lean by Dr Juan Valero. Self education is important in the journey for weight management. Patient was offered diagnostic testing/ SECA scale. We want to measure visceral adiposity, advanced body composition, adverse lipids, fatty acid balance, risk for heart disease and atherosclerosis, markers of inflammation and genetic susceptibility. Patient was counseled on weight management and was advised to lose weight using A. Meal Replacement Products Patient was educated on the replacement products called optifast. This is a good way of taking fixed amount of calories. It has been shown in studies to be ineffective weight management tool. This however has to be coupled with lifestyle intervention as well as laboratory data and EKG monitoring. It is impossible to know how a person will tolerate complete meal replacement. The side effects of meal replacement and weight loss could include syncopal attacks, dizziness, gallstones, potential cholecystectomy, possible heart attack and even . The benefits of meal replacement would be potential weight loss but no guarantees can be made. Meal replacement products are not covered by insurance. Once the patient has bought these products we cannot return them B. Lifestyle management which includes several strategies as below 1. Eat a low carbohydrate good fat good protein diet. Eliminate refined carbohydrates from the diet. Limit sugared beverages. Eat local organic when possible. Cook your own meals. Read food labels. Focus on healthy snacks. Portion control and food with low glycemic index 2. Exercise regularly. Try to get at least 6000 steps a day. Use a predominant to track activity level. Consider using apps like 7 minute excercise, Ext[employer]pal, lose it, stick as needed for self-monitoring and weight management. Consider group exercises. Consider hiring a interpersonal communications professor. Regular exercise is mendez to sustainable health and prevents as a buffer against weight regain 3. Sleep is most important for healing. Try to sleep at least 6-8 hours a night. A good quality sleep needs a sleep ritual with ideal room temperature of around 68. It might help to take a shower and have no electronics in the room and sleep in a very dark room without artificial light. Start sleep routine and get up early in the morning and go to bed on time. 4. Make a social connection. Surround yourself with positive people with positive energy. Connect with friends and family. 5. Get into the habit of meditating and mindfulness while doing everything. 6. Go outside and connect with nature. C. Prescription medications Patient was educated on the use of prescription medications for medical weight loss. This is a growing list and includes phentermine, Topamax,Qsymia, contrave, belviq and saxenda, wegovy etc. All prescription medications could have side effects including but not limited to kidney stones, seizure disorder cardiac arrhythmias heart attack pancreatitis, GI effects, Etc. Patient was encouraged to read the prescription insert and have coaching with their pharmacist and make an informed decision about taking medication and know that these medications are being prescribed with good intentions and we do not know how a patient would react to her medication. Some medications are FDA approved for weight loss and there is also off label use depending on patient's inability to afford medications in an attempt to lose weight D. Behavioral counseling was done to establish a relationship between food and an mood. Patient was provided information about local counseling and psychiatry and Dr Phillips at [facility]. We would like to cover regular topics and build on low glycemic eating exercise mindful eating, using yoga and meditation along with deep breathing and connecting with friends and family. E. MASS PAT reviewed, Patient's current medications were reviewed and opinion was given on medication that can cause weight gain and can be substituted F. Patient was assessed for risk with obesity including and not limiting to atherosclerosis heart disease stroke kidney disease, restrictive lung disease, irritable bowel syndrome and overall mortality. Risk of developing prediabetes diabetes and metabolic syndrome was discussed G. Therapeutic plan: We have decided to make therapeutic plan which would include choosing wisely on calories restricting portion getting active, tracking weight, getting good quality sleep and working on time management H. Patient will follow up in 4 weeks for weight management Total time spent today was 60 minutes of which greater than 50% was spent on coordinating and counseling Case discussed with collaborating physician Chloe Cordova who reviewed the assessment and plan. Chart, medications, labs, vital signs reviewed. Dictation was accomplished with the use of PAAY voice recognition software, prone to medical misidentifications and grammatical errors. This is unintentional and the practitioner does try to identify and correct these, but some could still be present. Please do not hesitate to contact practitioner for clarification. All questions answered to patients satisfaction. Patient verbalized understanding of diagnosis and treatments explained. To call sooner prior to next visit it any questions/concerns arise. 03/20/2025 Essential hypertension (ICD-10 - I10) Maikel is a 45 year old male who presents for weight management consult. Medical history, labs, allergies, medications, and social history reviewed with the patient. Provided education on healthy diet and lifestyle which includes high-protein, low carbohydrate, high-fiber, and a variety of fruits and vegetables. Patient encouraged to exercise with emphasis on resistance training minimum 3 times per week to maintain muscle mass and cardio to burn fat. All patient questions answered. Patient will follow-up in 4 weeks for weight management. #Obesity: 03/20/25: Weight 222.8 pounds, BMI 32.9. Patient has been following a mindful diet high in protein and avoids foods high in sugar, processed foods, fried foods for the past 6 months. He has also been exercising to the best of his ability after spine surgeries including walking daily and weight training with low weights a few times per week. Despite these lifestyle modifications, patient is unable to lose much weight. Highest weight was 235 pounds. Patient is requesting to start Zepbound. Educated of side effects including constipation, nausea, muscle loss, hair thinning. Will submit PA today. Follow-up in 4 weeks. #Hypertension: Patient follows with PCP. BP elevated today 144/82. Patient denies headache or vision changes. Continue amlodipine and losartan Patient was reassured and welcomed to the practice. We discussed that we stress a hollistic medical approach with emphasis on lifestyle modification. Patient was informed that a healthy lifestyle with exercise and good eating habits can help reduce his risk of medical complications. Patient is explained that obesity increases his risk of diabetes, cardiovascular disease, or organ damage. We spent a lot of time discussing the relationship between food, exercise, sleep, mental health and obesity. Patient was counseled on the importance EATING local, organic food when possible. Patient was educated on clean 15 and dirty dozen. I provided information about reading books called The Food Rules by Wade Whittaker and Eat Fat Get Lean by Dr Juan Valero. Self education is important in the journey for weight management. Patient was offered diagnostic testing/ SECA scale. We want to measure visceral adiposity, advanced body composition, adverse lipids, fatty acid balance, risk for heart disease and atherosclerosis, markers of inflammation and genetic susceptibility. Patient was counseled on weight management and was advised to lose weight using A. Meal Replacement Products Patient was educated on the replacement products called optifast. This is a good way of taking fixed amount of calories. It has been shown in studies to be ineffective weight management tool. This however has to be coupled with lifestyle intervention as well as laboratory data and EKG monitoring. It is impossible to know how a person will tolerate complete meal replacement. The side effects of meal replacement and weight loss could include syncopal attacks, dizziness, gallstones, potential cholecystectomy, possible heart attack and even . The benefits of meal replacement would be potential weight loss but no guarantees can be made. Meal replacement products are not covered by insurance. Once the patient has bought these products we cannot return them B. Lifestyle management which includes several strategies as below 1. Eat a low carbohydrate good fat good protein diet. Eliminate refined carbohydrates from the diet. Limit sugared beverages. Eat local organic when possible. Cook your own meals. Read food labels. Focus on healthy snacks. Portion control and food with low glycemic index 2. Exercise regularly. Try to get at least 6000 steps a day. Use a predominant to track activity level. Consider using apps like 7 minute excercise, myMy-Hammerpal, lose it, stick as needed for self-monitoring and weight management. Consider group exercises. Consider hiring a interpersonal communications professor. Regular exercise is mendez to sustainable health and prevents as a buffer against weight regain 3. Sleep is most important for healing. Try to sleep at least 6-8 hours a night. A good quality sleep needs a sleep ritual with ideal room temperature of around 68. It might help to take a shower and have no electronics in the room and sleep in a very dark room without artificial light. Start sleep routine and get up early in the morning and go to bed on time. 4. Make a social connection. Surround yourself with positive people with positive energy. Connect with friends and family. 5. Get into the habit of meditating and mindfulness while doing everything. 6. Go outside and connect with nature. C. Prescription medications Patient was educated on the use of prescription medications for medical weight loss. This is a growing list and includes phentermine, Topamax,Qsymia, contrave, belviq and saxenda, wegovy etc. All prescription medications could have side effects including but not limited to kidney stones, seizure disorder cardiac arrhythmias heart attack pancreatitis, GI effects, Etc. Patient was encouraged to read the prescription insert and have coaching with their pharmacist and make an informed decision about taking medication and know that these medications are being prescribed with good intentions and we do not know how a patient would react to her medication. Some medications are FDA approved for weight loss and there is also off label use depending on patient's inability to afford medications in an attempt to lose weight D. Behavioral counseling was done to establish a relationship between food and an mood. Patient was provided information about local counseling and psychiatry and Dr Phillips at [facility]. We would like to cover regular topics and build on low glycemic eating exercise mindful eating, using yoga and meditation along with deep breathing and connecting with friends and family. E. MASS PAT reviewed, Patient's current medications were reviewed and opinion was given on medication that can cause weight gain and can be substituted F. Patient was assessed for risk with obesity including and not limiting to atherosclerosis heart disease stroke kidney disease, restrictive lung disease, irritable bowel syndrome and overall mortality. Risk of developing prediabetes diabetes and metabolic syndrome was discussed G. Therapeutic plan: We have decided to make therapeutic plan which would include choosing wisely on calories restricting portion getting active, tracking weight, getting good quality sleep and working on time management H. Patient will follow up in 4 weeks for weight management Total time spent today was 60 minutes of which greater than 50% was spent on coordinating and counseling Case discussed with collaborating physician Chloe Cordova who reviewed the assessment and plan. Chart, medications, labs, vital signs reviewed. Dictation was accomplished with the use of PAAY voice recognition software, prone to medical misidentifications and grammatical errors. This is unintentional and the practitioner does try to identify and correct these, but some could still be present. Please do not hesitate to contact practitioner for clarification. All questions answered to patients satisfaction. Patient verbalized understanding of diagnosis and treatments explained. To call sooner prior to next visit it any questions/concerns arise. 05/19/2025 Essential hypertension (ICD-10 - I10) Maikel is a 45 year old male who presents for weight management consult. Medical history, labs, allergies, medications, and social history reviewed with the patient. Provided education on healthy diet and lifestyle which includes high-protein, low carbohydrate, high-fiber, and a variety of fruits and vegetables. Patient encouraged to exercise with emphasis on resistance training minimum 3 times per week to maintain muscle mass and cardio to burn fat. All patient questions answered. Patient will follow-up in 4 weeks for weight management. #Obesity: 03/20/25: Weight 222.8 pounds, BMI 32.9. Patient has been following a mindful diet high in protein and avoids foods high in sugar, processed foods, fried foods for the past 6 months. He has also been exercising to the best of his ability after spine surgeries including walking daily and weight training with low weights a few times per week. Despite these lifestyle modifications, patient is unable to lose much weight. Highest weight was 235 pounds. Patient is requesting to start Zepbound. Educated of side effects including constipation, nausea, muscle loss, hair thinning. Will submit PA today. Follow-up in 4 weeks. 04/20/2025: Weight 215.1 pounds, BMI 31.76. Patient congratulated on effort. Reviewed in body scan, he has lost 3 pounds of fat mass, visceral adipose tissue decreased from 5.0 to 3.7, weight circumference decreased from 44 to 41. Unfortunately, skeletal muscle mass decreased 3 pounds. Patient states he plans on exercising more and continues to focus on protein intake. He states over the past week he feels as if he plateaued and is hoping to go up on his dose. Plan to increase to Zepbound 5 mg weekly injections. Follow-up in 4 weeks. 05/19/2025: Weight 211.7 pounds, BMI 31.26. Congratulated on effort. Down 4 pounds overall from last visit, fat mass decreased 8 pounds, muscle mass increased 2 pounds, visceral adipose tissue maintained at 3.7, waist circumference is maintained at 41 inches. Plan to increase to Zepbound 7.5 mg weekly injections. Follow-up in 4 weeks. #Hypertension: Patient follows with PCP. Recently was started on amlodipine and losartan, patient is unsure of dosing. Initial BP 130/100, repeat 136/84. Will continue to monitor Patient was reassured and welcomed to the practice. We discussed that we stress a hollistic medical approach with emphasis on lifestyle modification. Patient was informed that a healthy lifestyle with exercise and good eating habits can help reduce his risk of medical complications. Patient is explained that obesity increases his risk of diabetes, cardiovascular disease, or organ damage. We spent a lot of time discussing the relationship between food, exercise, sleep, mental health and obesity. Patient was counseled on the importance EATING local, organic food when possible. Patient was educated on clean 15 and dirty dozen. I provided information about reading books called The Food Rules by Wade Whittaker and Eat Fat Get Lean by Dr Juan Valero. Self education is important in the journey for weight management. Patient was offered diagnostic testing/ SECA scale. We want to measure visceral adiposity, advanced body composition, adverse lipids, fatty acid balance, risk for heart disease and atherosclerosis, markers of inflammation and genetic susceptibility. Patient was counseled on weight management and was advised to lose weight using A. Meal Replacement Products Patient was educated on the replacement products called optifast. This is a good way of taking fixed amount of calories. It has been shown in studies to be ineffective weight management tool. This however has to be coupled with lifestyle intervention as well as laboratory data and EKG monitoring. It is impossible to know how a person will tolerate complete meal replacement. The side effects of meal replacement and weight loss could include syncopal attacks, dizziness, gallstones, potential cholecystectomy, possible heart attack and even . The benefits of meal replacement would be potential weight loss but no guarantees can be made. Meal replacement products are not covered by insurance. Once the patient has bought these products we cannot return them B. Lifestyle management which includes several strategies as below 1. Eat a low carbohydrate good fat good protein diet. Eliminate refined carbohydrates from the diet. Limit sugared beverages. Eat local organic when possible. Cook your own meals. Read food labels. Focus on healthy snacks. Portion control and food with low glycemic index 2. Exercise regularly. Try to get at least 6000 steps a day. Use a predominant to track activity level. Consider using apps like 7 minute excercise, myMy-Hammerpal, lose it, stick as needed for self-monitoring and weight management. Consider group exercises. Consider hiring a interpersonal communications professor. Regular exercise is mendez to sustainable health and prevents as a buffer against weight regain 3. Sleep is most important for healing. Try to sleep at least 6-8 hours a night. A good quality sleep needs a sleep ritual with ideal room temperature of around 68. It might help to take a shower and have no electronics in the room and sleep in a very dark room without artificial light. Start sleep routine and get up early in the morning and go to bed on time. 4. Make a social connection. Surround yourself with positive people with positive energy. Connect with friends and family. 5. Get into the habit of meditating and mindfulness while doing everything. 6. Go outside and connect with nature. C. Prescription medications Patient was educated on the use of prescription medications for medical weight loss. This is a growing list and includes phentermine, Topamax,Qsymia, contrave, belviq and saxenda, wegovy etc. All prescription medications could have side effects including but not limited to kidney stones, seizure disorder cardiac arrhythmias heart attack pancreatitis, GI effects, Etc. Patient was encouraged to read the prescription insert and have coaching with their pharmacist and make an informed decision about taking medication and know that these medications are being prescribed with good intentions and we do not know how a patient would react to her medication. Some medications are FDA approved for weight loss and there is also off label use depending on patient's inability to afford medications in an attempt to lose weight D. Behavioral counseling was done to establish a relationship between food and an mood. Patient was provided information about local counseling and psychiatry and Dr Phillips at [facility]. We would like to cover regular topics and build on low glycemic eating exercise mindful eating, using yoga and meditation along with deep breathing and connecting with friends and family. E. MASS PAT reviewed, Patient's current medications were reviewed and opinion was given on medication that can cause weight gain and can be substituted F. Patient was assessed for risk with obesity including and not limiting to atherosclerosis heart disease stroke kidney disease, restrictive lung disease, irritable bowel syndrome and overall mortality. Risk of developing prediabetes diabetes and metabolic syndrome was discussed G. Therapeutic plan: We have decided to make therapeutic plan which would include choosing wisely on calories restricting portion getting active, tracking weight, getting good quality sleep and working on time management H. Patient will follow up in 4 weeks for weight management Total time spent today was 60 minutes of which greater than 50% was spent on coordinating and counseling Case discussed with collaborating physician Chloe Cordova who reviewed the assessment and plan. Chart, medications, labs, vital signs reviewed. Dictation was accomplished with the use of PAAY voice recognition software, prone to medical misidentifications and grammatical errors. This is unintentional and the practitioner does try to identify and correct these, but some could still be present. Please do not hesitate to contact practitioner for clarification. All questions answered to patients satisfaction. Patient verbalized understanding of diagnosis and treatments explained. To call sooner prior to next visit it any questions/concerns arise. 05/19/2025 Encounter for examination of blood pressure with abnormal findings (ICD-10 - Z01.31) Maikel is a 45 year old male who presents for weight management consult. Medical history, labs, allergies, medications, and social history reviewed with the patient. Provided education on healthy diet and lifestyle which includes high-protein, low carbohydrate, high-fiber, and a variety of fruits and vegetables. Patient encouraged to exercise with emphasis on resistance training minimum 3 times per week to maintain muscle mass and cardio to burn fat. All patient questions answered. Patient will follow-up in 4 weeks for weight management. #Obesity: 03/20/25: Weight 222.8 pounds, BMI 32.9. Patient has been following a mindful diet high in protein and avoids foods high in sugar, processed foods, fried foods for the past 6 months. He has also been exercising to the best of his ability after spine surgeries including walking daily and weight training with low weights a few times per week. Despite these lifestyle modifications, patient is unable to lose much weight. Highest weight was 235 pounds. Patient is requesting to start Zepbound. Educated of side effects including constipation, nausea, muscle loss, hair thinning. Will submit PA today. Follow-up in 4 weeks. 04/20/2025: Weight 215.1 pounds, BMI 31.76. Patient congratulated on effort. Reviewed in body scan, he has lost 3 pounds of fat mass, visceral adipose tissue decreased from 5.0 to 3.7, weight circumference decreased from 44 to 41. Unfortunately, skeletal muscle mass decreased 3 pounds. Patient states he plans on exercising more and continues to focus on protein intake. He states over the past week he feels as if he plateaued and is hoping to go up on his dose. Plan to increase to Zepbound 5 mg weekly injections. Follow-up in 4 weeks. 05/19/2025: Weight 211.7 pounds, BMI 31.26. Congratulated on effort. Down 4 pounds overall from last visit, fat mass decreased 8 pounds, muscle mass increased 2 pounds, visceral adipose tissue maintained at 3.7, waist circumference is maintained at 41 inches. Plan to increase to Zepbound 7.5 mg weekly injections. Follow-up in 4 weeks. #Hypertension: Patient follows with PCP. Recently was started on amlodipine and losartan, patient is unsure of dosing. Initial BP 130/100, repeat 136/84. Will continue to monitor Patient was reassured and welcomed to the practice. We discussed that we stress a hollistic medical approach with emphasis on lifestyle modification. Patient was informed that a healthy lifestyle with exercise and good eating habits can help reduce his risk of medical complications. Patient is explained that obesity increases his risk of diabetes, cardiovascular disease, or organ damage. We spent a lot of time discussing the relationship between food, exercise, sleep, mental health and obesity. Patient was counseled on the importance EATING local, organic food when possible. Patient was educated on clean 15 and dirty dozen. I provided information about reading books called The Food Rules by Wade Whittaker and Eat Fat Get Lean by Dr Juan Valero. Self education is important in the journey for weight management. Patient was offered diagnostic testing/ SECA scale. We want to measure visceral adiposity, advanced body composition, adverse lipids, fatty acid balance, risk for heart disease and atherosclerosis, markers of inflammation and genetic susceptibility. Patient was counseled on weight management and was advised to lose weight using A. Meal Replacement Products Patient was educated on the replacement products called optifast. This is a good way of taking fixed amount of calories. It has been shown in studies to be ineffective weight management tool. This however has to be coupled with lifestyle intervention as well as laboratory data and EKG monitoring. It is impossible to know how a person will tolerate complete meal replacement. The side effects of meal replacement and weight loss could include syncopal attacks, dizziness, gallstones, potential cholecystectomy, possible heart attack and even . The benefits of meal replacement would be potential weight loss but no guarantees can be made. Meal replacement products are not covered by insurance. Once the patient has bought these products we cannot return them B. Lifestyle management which includes several strategies as below 1. Eat a low carbohydrate good fat good protein diet. Eliminate refined carbohydrates from the diet. Limit sugared beverages. Eat local organic when possible. Cook your own meals. Read food labels. Focus on healthy snacks. Portion control and food with low glycemic index 2. Exercise regularly. Try to get at least 6000 steps a day. Use a predominant to track activity level. Consider using apps like 7 minute excercise, [employer], lose it, stick as needed for self-monitoring and weight management. Consider group exercises. Consider hiring a interpersonal communications professor. Regular exercise is mendez to sustainable health and prevents as a buffer against weight regain 3. Sleep is most important for healing. Try to sleep at least 6-8 hours a night. A good quality sleep needs a sleep ritual with ideal room temperature of around 68. It might help to take a shower and have no electronics in the room and sleep in a very dark room without artificial light. Start sleep routine and get up early in the morning and go to bed on time. 4. Make a social connection. Surround yourself with positive people with positive energy. Connect with friends and family. 5. Get into the habit of meditating and mindfulness while doing everything. 6. Go outside and connect with nature. C. Prescription medications Patient was educated on the use of prescription medications for medical weight loss. This is a growing list and includes phentermine, Topamax,Qsymia, contrave, belviq and saxenda, wegovy etc. All prescription medications could have side effects including but not limited to kidney stones, seizure disorder cardiac arrhythmias heart attack pancreatitis, GI effects, Etc. Patient was encouraged to read the prescription insert and have coaching with their pharmacist and make an informed decision about taking medication and know that these medications are being prescribed with good intentions and we do not know how a patient would react to her medication. Some medications are FDA approved for weight loss and there is also off label use depending on patient's inability to afford medications in an attempt to lose weight D. Behavioral counseling was done to establish a relationship between food and an mood. Patient was provided information about local counseling and psychiatry and Dr Phillips at [facility]. We would like to cover regular topics and build on low glycemic eating exercise mindful eating, using yoga and meditation along with deep breathing and connecting with friends and family. E. MASS PAT reviewed, Patient's current medications were reviewed and opinion was given on medication that can cause weight gain and can be substituted F. Patient was assessed for risk with obesity including and not limiting to atherosclerosis heart disease stroke kidney disease, restrictive lung disease, irritable bowel syndrome and overall mortality. Risk of developing prediabetes diabetes and metabolic syndrome was discussed G. Therapeutic plan: We have decided to make therapeutic plan which would include choosing wisely on calories restricting portion getting active, tracking weight, getting good quality sleep and working on time management H. Patient will follow up in 4 weeks for weight management Total time spent today was 60 minutes of which greater than 50% was spent on coordinating and counseling Case discussed with collaborating physician Chloe Cordova who reviewed the assessment and plan. Chart, medications, labs, vital signs reviewed. Dictation was accomplished with the use of PAAY voice recognition software, prone to medical misidentifications and grammatical errors. This is unintentional and the practitioner does try to identify and correct these, but some could still be present. Please do not hesitate to contact practitioner for clarification. All questions answered to patients satisfaction. Patient verbalized understanding of diagnosis and treatments explained. To call sooner prior to next visit it any questions/concerns arise. 03/20/2025 Encounter for examination of blood pressure with abnormal findings (ICD-10 - Z01.31) Maikel is a 45 year old male who presents for weight management consult. Medical history, labs, allergies, medications, and social history reviewed with the patient. Provided education on healthy diet and lifestyle which includes high-protein, low carbohydrate, high-fiber, and a variety of fruits and vegetables. Patient encouraged to exercise with emphasis on resistance training minimum 3 times per week to maintain muscle mass and cardio to burn fat. All patient questions answered. Patient will follow-up in 4 weeks for weight management. #Obesity: 03/20/25: Weight 222.8 pounds, BMI 32.9. Patient has been following a mindful diet high in protein and avoids foods high in sugar, processed foods, fried foods for the past 6 months. He has also been exercising to the best of his ability after spine surgeries including walking daily and weight training with low weights a few times per week. Despite these lifestyle modifications, patient is unable to lose much weight. Highest weight was 235 pounds. Patient is requesting to start Zepbound. Educated of side effects including constipation, nausea, muscle loss, hair thinning. Will submit PA today. Follow-up in 4 weeks. #Hypertension: Patient follows with PCP. BP elevated today 144/82. Patient denies headache or vision changes. Continue amlodipine and losartan Patient was reassured and welcomed to the practice. We discussed that we stress a hollistic medical approach with emphasis on lifestyle modification. Patient was informed that a healthy lifestyle with exercise and good eating habits can help reduce his risk of medical complications. Patient is explained that obesity increases his risk of diabetes, cardiovascular disease, or organ damage. We spent a lot of time discussing the relationship between food, exercise, sleep, mental health and obesity. Patient was counseled on the importance EATING local, organic food when possible. Patient was educated on clean 15 and dirty dozen. I provided information about reading books called The Food Rules by Wade Whittaker and Eat Fat Get Lean by Dr Juan Valero. Self education is important in the journey for weight management. Patient was offered diagnostic testing/ SECA scale. We want to measure visceral adiposity, advanced body composition, adverse lipids, fatty acid balance, risk for heart disease and atherosclerosis, markers of inflammation and genetic susceptibility. Patient was counseled on weight management and was advised to lose weight using A. Meal Replacement Products Patient was educated on the replacement products called optifast. This is a good way of taking fixed amount of calories. It has been shown in studies to be ineffective weight management tool. This however has to be coupled with lifestyle intervention as well as laboratory data and EKG monitoring. It is impossible to know how a person will tolerate complete meal replacement. The side effects of meal replacement and weight loss could include syncopal attacks, dizziness, gallstones, potential cholecystectomy, possible heart attack and even . The benefits of meal replacement would be potential weight loss but no guarantees can be made. Meal replacement products are not covered by insurance. Once the patient has bought these products we cannot return them B. Lifestyle management which includes several strategies as below 1. Eat a low carbohydrate good fat good protein diet. Eliminate refined carbohydrates from the diet. Limit sugared beverages. Eat local organic when possible. Cook your own meals. Read food labels. Focus on healthy snacks. Portion control and food with low glycemic index 2. Exercise regularly. Try to get at least 6000 steps a day. Use a predominant to track activity level. Consider using apps like 7 minute excercise, myMy-Hammerpal, lose it, stick as needed for self-monitoring and weight management. Consider group exercises. Consider hiring a interpersonal communications professor. Regular exercise is mendez to sustainable health and prevents as a buffer against weight regain 3. Sleep is most important for healing. Try to sleep at least 6-8 hours a night. A good quality sleep needs a sleep ritual with ideal room temperature of around 68. It might help to take a shower and have no electronics in the room and sleep in a very dark room without artificial light. Start sleep routine and get up early in the morning and go to bed on time. 4. Make a social connection. Surround yourself with positive people with positive energy. Connect with friends and family. 5. Get into the habit of meditating and mindfulness while doing everything. 6. Go outside and connect with nature. C. Prescription medications Patient was educated on the use of prescription medications for medical weight loss. This is a growing list and includes phentermine, Topamax,Qsymia, contrave, belviq and saxenda, wegovy etc. All prescription medications could have side effects including but not limited to kidney stones, seizure disorder cardiac arrhythmias heart attack pancreatitis, GI effects, Etc. Patient was encouraged to read the prescription insert and have coaching with their pharmacist and make an informed decision about taking medication and know that these medications are being prescribed with good intentions and we do not know how a patient would react to her medication. Some medications are FDA approved for weight loss and there is also off label use depending on patient's inability to afford medications in an attempt to lose weight D. Behavioral counseling was done to establish a relationship between food and an mood. Patient was provided information about local counseling and psychiatry and Dr Phillips at [facility]. We would like to cover regular topics and build on low glycemic eating exercise mindful eating, using yoga and meditation along with deep breathing and connecting with friends and family. E. MASS PAT reviewed, Patient's current medications were reviewed and opinion was given on medication that can cause weight gain and can be substituted F. Patient was assessed for risk with obesity including and not limiting to atherosclerosis heart disease stroke kidney disease, restrictive lung disease, irritable bowel syndrome and overall mortality. Risk of developing prediabetes diabetes and metabolic syndrome was discussed G. Therapeutic plan: We have decided to make therapeutic plan which would include choosing wisely on calories restricting portion getting active, tracking weight, getting good quality sleep and working on time management H. Patient will follow up in 4 weeks for weight management Total time spent today was 60 minutes of which greater than 50% was spent on coordinating and counseling Case discussed with collaborating physician Chloe Cordova who reviewed the assessment and plan. Chart, medications, labs, vital signs reviewed. Dictation was accomplished with the use of PAAY voice recognition software, prone to medical misidentifications and grammatical errors. This is unintentional and the practitioner does try to identify and correct these, but some could still be present. Please do not hesitate to contact practitioner for clarification. All questions answered to patients satisfaction. Patient verbalized understanding of diagnosis and treatments explained. To call sooner prior to next visit it any questions/concerns arise. Plan Of Treatment Next Appt Details Provider Name:Avis Tejinder wiggins, 06/16/2025 03:00:00 PM, [address] [facility] [address], [place], [address], Insurance Providers Payer Name Payer Address Payer Phone Subscriber Number Group Number Insured Name Patient Relationship to Insured Coverage Start Date Coverage End Date [facility] [address] [place] [address] [id number] MAIKEL DIANE Self - patient is the insured 4 [employer] [address] [address] [place] [address] [id number] [phone] MAIKEL DIANE Self - patient is the insured Medical (General) History Medical History History ICD Code high blood pressure weight gain/loss fracture/broken bones Arthritis headaches Surgical History Surgery Date(Month/Year) L5 S1 lumbar fusion x2 2019 & 2021 C3 C4 cervical fusion 2020 Left Pec tear 2022 Right Shoulder slap tear x2 2009 & 2015
--- OUTSIDE RECORDS SUMMARY | 2025-06-04 09:46 | XMS_ITS | Clinical Summary ---
Author Organization [facility] Address [address] [place] [id number] Care Team Providers Care Sweat Box Attendant Name Role Phone Pcp, No Primary Care Provider Unavailabl Gilda Bob RN Unavailable [phone] Allergies No known active allergies Medications acetaminophen (TYLENOL) 500 MG tablet Take 2 tablets (1,000 mg total) by mouth 3 (three) times a day as needed. Active amLODIPine (NORVASC) 5 MG tablet Take 1 tablet (5 mg total) by mouth. Active anastrozole (ARIMIDEX) 1 MG tablet TAKE 1 TABLET BY MOUTH EVERY SUNDAY AND SUNDAY Active carBAMazepine (CARBATROL) 100 MG 12 hr capsule Active celeCOXIB (CeleBREX) 200 MG capsule Take by mouth. Acti ve Aimovig 140 MG/ML Solution Auto-injector injection Active ISOtretinoin (ACCUTANE) 40 MG capsule Take by mouth. Acti ve losartan (COZAAR) 25 MG tablet Take 1 tablet (25 mg total) by mouth. Active rizatriptan (MAXALT) 10 MG tablet Active testosterone cypionate (DEPO-TESTOSTER ONE CYPIONATE) 200 mg/mL injection Active tiZANidine (ZANAFLEX) 4 MG tablet Active TiZANidine (ZANAFLEX) 2 MG capsule Active Encounters Date Type Department Care Team Description 03/09/2025 9:30 AM EDT Office Visit [facility] Neurosurgery [address] [place] [phone] Deacon Uribe MD Adams, Tosha A, PA-C Degeneration of intervertebral disc of lumbar region with discogenic back pain and lower extremity pain (Primary Dx); Lumbar radiculopathy 03/09/2025 Telephone [facility] Neurosurgery [address] [place] [address] Gilda Swan RN Establish Care 03/09/2025 Travel from Last 3 Months Family History Relation Name Status Comments Daughter 1 Alive Daughter 2 Alive Daughter 3 Alive Father Alive Mother Alive Other Alive Sister 1 Alive Sister 2 Alive Son 1 Alive Son 2 Alive Social History Tobacco Use Types Packs/Day Years Used Date Smoking Tobacco: Never Assessed Sex and Gender Information Value Date Recorded Sex Assigned at Not on file Legal Sex Male 9:02 AM EDT Gender Identity Not on file Sexual Orientation Not on file Last Filed Vital Signs Vital Sign Reading Time Taken Comments Blood Pressure - - Pulse - - Temperature 36.8 C (98.2 F) 03/09/2025 9:25 AM EDT Respiratory Rate - - Oxygen Saturation - - Inhaled Oxygen Concentration - - Weight 103 kg (226 lb) 03/09/2025 9:25 AM EDT Height - - Body Mass Index - - Plan of Treatment Health Maintenance Due Date Last Done Comments Hepatitis C Virus Screening 1981 HIV Screening 1994 DTaP/Tdap/Td Vaccines (1 - Tdap) 02/23/2000 Hepatitis B Vaccines (1 of 3 - 19+ 3-dose series) 02/23/2000 COVID-19 Vaccine (2023-2 5 season) 2024 Influenza Vaccine 05/29/2025 HPV Vaccines Aged Out No longer eligi ble based on patient's age to complete this topic Pneumococcal Vaccine: Pediat oriana (0-5 Years) and At-Risk Patients (6 to 49 Years) Aged Out No longer eligible b ased on patient's age to complete this topic Insurance [facility] Care Teams Sweat Box Attendant Relationship Specialty Start Date End Date Pcp, No PCP - General General Medicine 02/16/25 Gilda Swan RN [address] [place] [id number] Nurse Navigator Surgery, Neurosurgery 03/09/25
--- OUTSIDE RECORDS SUMMARY | 2025-06-04 09:46 | XMS_ITS | Clinical Summary ---
Author Organization [facility] Address [address] [place] [address] Care Team Providers Care Spot Cleaner Name Role Phone Mendoza Olvera MD Primary Care Provider Surgical History Surgery Date Site/Laterality Comments OTHER SURGICAL HISTORY 04/2020 PROCEDURE: [place] ARTHRODESIS POSTERIOR INTERBODY 1 NTRSPC LUMBAR; COMMENT: Dr. Barker L5-S1 posterior fusion OTHER SURGICAL HISTORY 08/25/2021 PROCEDURE: TN OSTEOTOMY SPINE W/DSC ANT APPR 1 VRT SGM LUMBAR; COMMENT: L5-S1 revision surgery with ALIF, anterior plate, and removal of posterior screws/rods, done in CT SHOULDER ARTHROSCOPY 2009 Right PROCEDURE: TN SURGICAL ARTHROSCOPY SHOULDER W/LSS&RESCJ ADS; COMMENT: slap [...] series) 02/23/2000 Cholesterol Screening (Lipid Panel) 11/29/2019 HIV Screening 11/29/2019 Hepatitis C Screening 11/29/2019 Social Influencers of Health Screening 11/29/2019 Depression Screening 10/29/2024 Influenza Vaccine (#1) 2025 09/29/2017 HIB Vaccines Aged Out No longer [...] 5 Years) and At-Risk Patients (6 to 49 Years) Aged Out No longer eligi ble based on patient's age to complete this topic RSV Immunization Patients Un amanda 20 months Aged Out No longer eligible b ased on patient's age to complete this topic Varicella Vaccines Aged Out No longer eligible based on patient's age to complete this topic Medical Devices Implanted Type Area Contact Center Associate Device Identifier Shelf Expiration Date Model / Serial / Lot Surgiflo Hemostatic Matrix [employer] [id number] Implanted:Qty: 1 on 08/25/2021 by Joseph Sorensen MD Implants N/A: Spine Lumbar [employer] 12/26/2022 2991 / / [id number] Surgiflo Hemostatic Matrix [employer] [id number] Implanted:Qty: 1 on 07/12/2022 by Joseph Sorensen MD Implants N/A: Spine Cervical [employer] 08/28/2023 2991 / / [id number] Bone Graft Spine Infuse [facility] [id number] Implanted:Qty: 1 on 08/25/2021 by Joseph Sorensen MD N/A: Spine Lumbar [employer] CHRISTIANO BELCHER 05/28/2023 [id number] / / [id number] [id number] Implanted:Qty: 1 on 08/25/2021 by Joseph Sorensen MD N/A: Spine Lumbar MARGARITA SPINE L15 / / Screw Self-Starting 5.5x25mm Stry-K2m [id number] Implanted:Qty: 2 on 08/25/2021 by Joseph Sorensen MD N/A: Spine Lumbar MARGARITA SPINE D / / Screw Lumb Ant S T 5.5x30mm Stry-K2m [id number] Implanted:Qty: 1 on 08/25/2021 by Joseph Sorensen MD N/A: Spine Lumbar MARGARITA SPINE / / Vikos Cervical 14x14.5x7mm 7d Stry-Spin [id number] - [id number] Implanted:Qty: 1 on 07/12/2022 by Joseph Sorensen MD N/A: Spine Cervical MARGARITA SPINE 02/02/2026 [id number] / [id number] / Anterior Cervical Plate Constr 1 Level 22mm Stry-K2m [id number] Implanted:Qty: 1 on 07/12/2022 by Joseph Sorensen MD N/A: Spine Cervical MARGARITA SPINE [id number] / / Screw Va Self-Start 4x14mm Stry-K2m [id number] Implanted:Qty: 4 on 07/12/2022 by Joseph Sorensen MD N/A: Spine Cervical MARGARITA SPINE [id number] DA / / Advance Directives Documents on File Type Date Recorded Patient Rural Carrier Expl anation Health Care Decision (hx) 08/26/2021 AD TREJO DIRECTIVE Health Care Decision (hx) 05/10/2018 AD TREJO DIRECTIVE Health Care Decision (hx) 05/10/2018 AD TREJO DIRECTIVE Health Care Decision (hx) 05/10/2018 AD TREJO DIRECTIVE Health Care Decision (hx) 05/10/2018 AD TREJO DIRECTIVE Health Care Decision (hx) 05/10/2018 AD TREOJ DIRECTIVE Health Care Decision (hx) 05/10/2018 AD [...] (hx) 05/10/2018 AD TREJO DIRECTIVE Care Teams Spot Cleaner Relationship Specialty Start Date End Date Mendoza Olvera MD [address] [place] [phone] PCP - General Internal Medicine 01/02/22
--- OUTSIDE RECORDS SUMMARY | 2025-06-04 09:46 | XMS_ITS | Clinical Summary ---
Author Organization [facility] Address [address] [place] [address] Care Team Providers Care Clinical Quality Assurance Associate Name Role Phone Unavailable Primary Care Provider [...] 74 04/18/2019 10:03 AM EDT Temperature 36.9 C (98.4 F) 04/18/2019 10:03 AM EDT Respiratory Rate 16 04/18/2019 10:03 AM EDT [...] - 19+ 3-dose series) 02/23/2000 COVID-19 Vaccine (1 - 2024-2 5 season) 2024 Influenza (#1) 2025 Zoster (Shingrix) (1 of 2) 2031 HPV Vaccine (No Doses Required) Completed Hep A Aged Out No longer eligi ble based on patient's age to complete this topic Hib Aged Out No longer eligi ble based on patient's age to complete this topic Meningococcal ACWY Aged Out No longer eligible based on patient's age to complete this topic Pneumococcal Aged Out No longer eligi ble based on patient's age to complete this topic Insurance [employer] * Guarantor: FARHANA CASAS Account Type Relation to Patient Date of Phone Billing Address Personal/Family [address] [place] [address] * Guarantor: [employer] YESSI BOSWELL [facility] Account Type Relation to Patient Date of Phone Billing Address Occupational Health [employer] RUSS BOSWELL ATTN: A/P [address] [place] [address]
--- OUTSIDE RECORDS SUMMARY | 2025-06-04 09:46 | XMS_ITS | Clinical Summary ---
Author Organization [facility] Address [address] [place] [address] Care Team Providers Care Daycare Provider Name Role Phone Mendoza Olvera MD Primary Care Provider [phone] Allergies No known active allergies Medications Medication [...] 94 07/13/2022 7:46 AM EDT Temperature 36.5 C (97.7 F) 07/13/2022 7:46 AM EDT Respiratory Rate 18 07/13/2022 7:46 AM EDT [...] (1 - Tdap) 02/23/2000 Influenza Vaccine (#1) 2025 09/29/2017 Pneumococcal Vaccine Aged Out No long er eligible based on patient's age to complete this topic RSV Ped < 20 months Aged Out No longe r eligible based on patient's age to complete this topic Medical Devices Implanted Type Area Jewelry Mold Maker Device Identifier Shelf Expiration Date Model / Serial / Lot Surgiflo Hemostatic Matrix [facility] [id number] - [id number] Implanted:Qty : 1 on 08/25/2021 by Joseph Sorensen MD at [facility] Hemostatic Agent Anterior/ Posterior: Spine Lumbar [employer] 12/26/2022 2991 / / [id number] Surgiflo Hemostatic Matrix Jnj-Ethi [id number] - [id number] Implanted:Qty : 1 on 07/12/2022 by Joseph Sorensen MD at [facility] Hemostatic Agent Anterior: Spine Cervical JNJ [employer] 08/28/2023 2991 / / [id number] Bone Graft Spine Infuse Sm Medt-Sofa [id number] - [id number] Implanted:Qty : 1 on 08/25/2021 by Joseph Sorensen MD at [facility] Anterior: Spine Lumbar [employer] SOFAMOR DANEK 05/28/2023 [id number] / / [id number] Implanted:Qty : 1 on 08/25/2021 by Joseph Sorensen MD at [facility] Anterior: Spine Lumbar MARGARITA SPINE 0L15 / / Screw Self-Starting 5.5x25mm Stry-K2m [id number] - [id number] Implanted:Qty : 2 on 08/25/2021 by Joseph Sorensen MD at [facility] Anterior: Spine Lumbar MARGARITA SPINE 5D / / Screw Lumb Ant S T 5.5x30mm Stry-K2m [id number] 2604 - [id number] Implanted:Qty : 1 on 08/25/2021 by Joseph Sorensen MD at [facility] Anterior: Spine Lumbar MARGARITA SPINE 0 / / Vikos Cervical 14x14.5x7mm 7d Stry-Spin [id number] - [id number] Implanted:Qty : 1 on 07/12/2022 by Joseph Sorensen MD at [facility] Anterior: Spine Cervical MARG[employer]ITA SPINE 02/02/2026 [id number] 07L7 / [id number] / Anterior Cervical Plate Constr 1 Level 22mm Stry-K2m [id number] - [id number] Implanted:Qty : 1 on 07/12/2022 by Joseph Sorensen MD at [facility] Anterior: Spine Cervical MARGARITA SPINE [id number] 2V / / Screw Va Self-Start 4x14mm Stry-K2m [id number]- [id number] - [id number] Implanted:Qty : 4 on 07/12/2022 by Joseph Sorensen MD at [facility] Anterior: Spine Cervical MARGARITA SPINE [id number] / / Explanted Type Area Jewelry Mold Maker Device Identifier Shelf Expiration Date Model / Serial / Lot Gavino Explanted:Qty: 2 on 08/25/2021 by Joseph Sorensen MD at [facility] Posterior: Spine Lumbar Screw Explanted:Qty: 4 on 08/25/2021 by Joseph Sorensen MD at [facility] Posterior: Spine Lumbar Tlif Explanted:Qty: 1 on 08/25/2021 by Joseph Sorensen MD at [facility] Posterior: Spine Lumbar Set Screw Explanted:Qty: 4 on 08/25/2021 by Joseph Sorensen MD at [facility] Posterior: Spine Lumbar Advance Directives For more information, please contact: [phone] Documents on File Type Date Recorded Patient Retail Project Merchandiser Expl anation Advance Directive and Living Will [...] way: discussion with patient . Care Teams Daycare Provider Relationship Specialty Start Date End Date Mendoza Olvera MD [address] [place] [address] PCP - General Internal Medicine 04/16/18
--- OUTSIDE RECORDS SUMMARY | 2025-06-04 09:47 | XMS_ITS ---
Author Name [facility] Organization Unknown History of Medication Use Medication Directions Dispensed Refills Start Date End Date Stat carBAMazepine (CARBATROL) 100 MG 12 hr capsule 12/19/2024 active acetaminophen (TYLENOL) 500 MG tablet Take 2 tablets (1,000 mg total) by mouth 3 (three) times a day as needed. active Aimovig 140 MG/ML Solution Auto-injector injection active amLODIPine (NORVASC) 5 MG tablet Take 1 tablet (5 mg total) by mouth. active anastrozole (ARIMIDEX) 1 MG tablet TAKE 1 TABLET BY MOUTH EVERY SUNDAY AND SUNDAY active celeCOXIB (CeleBREX) 200 MG capsule Take by mouth. active ISOtretinoin (ACCUTANE) 40 MG capsule Take by mouth. active losartan (COZAAR) 25 MG tablet Take 1 tablet (25 mg total) by mouth. active rizatriptan (MAXALT) 10 MG tablet active testosterone cypionate (DEPO-TESTOSTERONE CYPIONATE) 200 mg/mL injection active TiZANidine (ZANAFLEX) 2 MG capsule active tiZANidine (ZANAFLEX) 4 MG tablet active Encounters Encounter Type Encounter Reason Primary Diagnosis Location Date Ambulatory Other intervertebral disc degeneration, lumbar region with discogenic back pain and lower extremity pain Other intervertebral disc degeneration, lumbar region with discogenic back pain and lower extremity pain G3 03/09/2025 Ambulatory G3 02/27/2025 Ambulatory G3 02/27/2025 Ambulatory G3 02/27/2025 Ambulatory G3 02/27/2025 Ambulatory [facility] 08/08/2024 Ambulatory [facility] 07/27/2023 Ambulatory [facility] 07/13/2023 Ambulatory [facility] 07/13/2023 Ambulatory [facility] 07/13/2023 Ambulatory [facility] 05/26/2023 Ambulatory [facility] 04/21/2023 Ambulatory [facility] 03/17/2023 Care Team Organization Name Specialty Phone Email Start Date End Da te [facility] PCP [facility] 02/27/2025 04/07/2025 [facility] NO PCP Primary Care 02/27/2025 [facility] 2024 [facility] 09/05/2022 06/16/20 24
== END 2025-06-04 10:23 | disposition home or self-care (01) ==
LOC: HO.HSMS 09:23
PROVIDERS: PCP Internal Medicine; Visit Provider Nurse Practitioner Family
DX: G43.109 Migraine with aura, not intractable, without status migrainosus (principal); G50.9 Disorder of trigeminal nerve, unspecified; R20.2 Paresthesia of skin; F07.81 Postconcussional syndrome; G43.009 Migraine without aura, not intractable, without status migrainosus; R90.82 White matter disease, unspecified
CPT/HCPCS: 99214